=== PATIENT | female | born 1930 | race African-American/Black ===

== ENCOUNTER 2018-02-03 16:52 | Inpatient (IN) | payer MEDICARE, BC ==
[~2018-02-03] VITALS: Ht 170.2 cm; Wt 56.3 kg
[~2018-02-03 16:52] MED LIST: AGGR PO; ATOR10TA PO; DILT240C92 PO
[2018-02-03] MEDS ORDERED: SODIUM CHLORIDE 0.9% 1000ML BAG (SEPSIS BOLUS) IV ONE (18:30)
[2018-02-03 18:52] LABS: BASOPHILS % 0.3 % (0.0-2.0); EOSINOPHILS % 0.2 % (0.0-5.0); HEMATOCRIT. 29.6 % (36.0-48.0); HEMOGLOBIN. 10.3 g/dL (12.0-16.0); LYMPHOCYTES % 25.1 % (20.0-50.0); MEAN CORPUSCULAR HEMOGLOBIN 31.4 pg (28.0-32.0); MEAN CORPUSCULAR VOLUME 90.3 fL (81.0-99.0); MEAN PLATELET VOLUME 8.6 fl (7.4-10.4); MONOCYTES % 11.9 % (2.0-8.0); NEUTROPHILS % 62.5 % (40.0-76.0); PLATELET 248 x1000/uL (130-400); RED BLOOD CELL COUNT 3.28 mill/uL (4.2-5.4); RED CELL DISTRIBUTION WIDTH 14.6 % (11.6-14.6)
[2018-02-03 18:55] LABS: CHLORIDE 97 mEq/L (98-107)
[2018-02-03 18:57] LABS: INR 1.2; PROTHROMBIN TIME 12.3 sec (9.1-11.1)
[2018-02-03 19:08] LABS: CLARITY URINE CLOUDY (CLEAR); COLOR URINE YELLOW (YELLOW); KETONES URINE NEGATIVE (NEGATIVE); LEUKOCYTE ESTERASE URINE 1+ (NEGATIVE); NITRITE URINE NEGATIVE (NEGATIVE); OCCULT BLOOD URINE TRACE (NEGATIVE); PROTEIN URINE 2+ (NEGATIVE); SPECIFIC GRAVITY URINE 1.019 (1.005-1.030); UROBILINOGEN URINE 0.2 E.U./dL (0.2-1.0)
[2018-02-03] MEDS ORDERED: AZITHROMYCIN 500 MG in DEXT 5% WATER 250 ML IV NR (20:32)
[2018-02-03] MEDS ORDERED: ASPIRIN 81MG TABLET PO NR (20:45)
[2018-02-03] MEDS ORDERED: CEFTRIAXONE 1 G PREMIX 50 ML IV NR (20:45)
[2018-02-03 22:20] VITALS: BP 164/136
[2018-02-04] VITALS: BP 152/69
[2018-02-04] MEDS ORDERED: LEVOFLOXACIN 500MG PREMIX 100 ML IV SCH ×2 (00:15→02:00)
[2018-02-04] MEDS ORDERED: DEXT 5%/0.9% NACL 1,000 ML IV SCH (00:15)
[2018-02-04] MEDS ORDERED: DIATR MEGLU/DIATRIZOATE SOLN 30ML PO SCH (00:15)
[2018-02-04] MEDS ORDERED: CLONIDINE 0.1MG TABLET PO PRN (00:45)
[2018-02-04] MEDS ORDERED: VANCOMYCIN 1250MG in DEXTROSE 5% WATER 250ML IV SCH (02:00)
[2018-02-04 03:23] VITALS: BP 120/72
[2018-02-04] MEDS: ACETAMINOPHEN 500MG TABLET PO PRN ×2 (03:41→23:35)
[2018-02-04 06:47] LABS: BASOPHILS % 0.2 % (0.0-2.0); HEMATOCRIT. 28.2 % (36.0-48.0); HEMOGLOBIN. 9.9 g/dL (12.0-16.0); LYMPHOCYTES % 14.5 % (20.0-50.0); MEAN CORPUSCULAR HEMOGLOBIN 31.4 pg (28.0-32.0); MEAN CORPUSCULAR VOLUME 89.8 fL (81.0-99.0); MEAN PLATELET VOLUME 8.4 fl (7.4-10.4); NEUTROPHILS % 75.3 % (40.0-76.0); PLATELET 236 x1000/uL (130-400); RED BLOOD CELL COUNT 3.14 mill/uL (4.2-5.4); RED CELL DISTRIBUTION WIDTH 14.6 % (11.6-14.6)
[2018-02-04 06:51] LABS: CHLORIDE 97 mEq/L (98-107)
[2018-02-04 08:00] VITALS: BP 152/82
[2018-02-04] MEDS: POTASSIUM CHLORIDE 20MEQ TABLET SR PO SCH ×3 (08:18→17:23)
[2018-02-04] MEDS: DILTIAZEM HCL 240MG ER (24HR) PO SCH (08:18)
[2018-02-04] MEDS: ASPIRIN/DIPYRIDAMOLE 25MG/200MG CAPSULE SA PO SCH ×2 (08:18→21:17)
[2018-02-04] MEDS ORDERED: KCL 20MEQ/100ML PREMIX 250 ML IV ONE (09:00)
[2018-02-04] MEDS ORDERED: DIATR MEGLU/DIATRIZOATE SOLN 30ML PO NR ×2 (09:15→15:30)
[2018-02-04] MEDS ORDERED: POTASSIUM CHLORIDE INJ 20 MEQ in DEXT 5% WATER 250 ML IV NR (10:30)
[2018-02-04 12:00] VITALS: BP 147/60
[2018-02-04] MEDS: DEXT 5%/0.45% NACL KCL 40MEQ/L 1,000 ML IV SCH (15:23)
[2018-02-04 16:00] VITALS: BP 132/68
[2018-02-04] MEDS ORDERED: MEGE625O3 PO (17:16)
[2018-02-04] MEDS ORDERED: MONT10TA24 PO (17:16)
[2018-02-04] MEDS ORDERED: IBAN150T9 PO (17:16)
[2018-02-04] MEDS ORDERED: IOHEXOL-300 100 ML BOTTLE ONE (19:31)
[2018-02-04 19:57] VITALS: BP 140/80
[2018-02-04] MEDS: AZITHROMYCIN 500 MG in DEXT 5% WATER 250 ML IV SCH (19:59)
[2018-02-04] MEDS: VANCOMYCIN 1 G PREMIX 200 ML IV SCH (21:17)
[2018-02-04] MEDS: ATORVASTATIN CALCIUM 10MG TABLET PO SCH (21:17)
[2018-02-05] VITALS: BP 129/56
[2018-02-05] MEDS: DEXT 5%/0.45% NACL KCL 40MEQ/L 1,000 ML IV SCH ×2 (00:50→18:12)
[2018-02-05] MEDS: LEVOFLOXACIN 250MG PREMIX 50 ML IV SCH (02:10)
[2018-02-05 04:00] VITALS: BP 126/65
[2018-02-05 07:00] LABS: BASOPHILS % 0.2 % (0.0-2.0); EOSINOPHILS % 0.2 % (0.0-5.0); HEMATOCRIT. 28.7 % (36.0-48.0); HEMOGLOBIN. 10.1 g/dL (12.0-16.0); LYMPHOCYTES % 16.8 % (20.0-50.0); MEAN CORPUSCULAR HEMOGLOBIN 31.2 pg (28.0-32.0); MEAN CORPUSCULAR VOLUME 88.9 fL (81.0-99.0); MEAN PLATELET VOLUME 8.3 fl (7.4-10.4); MONOCYTES % 14.6 % (2.0-8.0); NEUTROPHILS % 68.2 % (40.0-76.0); PLATELET 225 x1000/uL (130-400); RED BLOOD CELL COUNT 3.23 mill/uL (4.2-5.4); RED CELL DISTRIBUTION WIDTH 14.6 % (11.6-14.6)
[2018-02-05 08:00] VITALS: BP 127/74
[2018-02-05] MEDS: DILTIAZEM HCL 240MG ER (24HR) PO SCH (09:12)
[2018-02-05] MEDS: POTASSIUM CHLORIDE 20MEQ TABLET SR PO SCH ×3 (09:12→18:06)
[2018-02-05] MEDS: ACETAMINOPHEN 500MG TABLET PO PRN ×2 (09:12→18:31)
[2018-02-05] MEDS: ASPIRIN/DIPYRIDAMOLE 25MG/200MG CAPSULE SA PO SCH ×2 (09:12→20:27)
[2018-02-05 12:00] VITALS: BP 143/68
[2018-02-05] MEDS ORDERED: MEGESTROL ACETATE 40MG TABLET PO SCH (12:30)
[2018-02-05] MEDS: MEGESTROL ACETATE 400 MG/10 ML UDC PO SCH (13:30)
[2018-02-05] MEDS: VANCOMYCIN 1 G PREMIX 200 ML IV SCH (15:13)
[2018-02-05 16:00] VITALS: BP 132/81
[2018-02-05 20:00] VITALS: BP 129/51
[2018-02-05] MEDS: ATORVASTATIN CALCIUM 10MG TABLET PO SCH (20:27)
[2018-02-05] MEDS: AZITHROMYCIN 500 MG in DEXT 5% WATER 250 ML IV SCH (20:28)
[2018-02-06] VITALS: BP 128/61
[2018-02-06] MEDS: LEVOFLOXACIN 250MG PREMIX 50 ML IV SCH (01:31)
[2018-02-06 04:00] VITALS: BP 146/65
[2018-02-06 06:33] LABS: BASOPHILS % 0.2 % (0.0-2.0); EOSINOPHILS % 0.2 % (0.0-5.0); HEMATOCRIT. 28.7 % (36.0-48.0); HEMOGLOBIN. 10.2 g/dL (12.0-16.0); LYMPHOCYTES % 16.6 % (20.0-50.0); MEAN CORPUSCULAR HEMOGLOBIN 31.7 pg (28.0-32.0); MEAN CORPUSCULAR VOLUME 89.2 fL (81.0-99.0); MEAN PLATELET VOLUME 8.4 fl (7.4-10.4); PLATELET 229 x1000/uL (130-400); RED BLOOD CELL COUNT 3.22 mill/uL (4.2-5.4); RED CELL DISTRIBUTION WIDTH 14.9 % (11.6-14.6)
[2018-02-06 07:59] LABS: CHLORIDE 102 mEq/L (98-107)
[2018-02-06 08:00] VITALS: BP 137/62
[2018-02-06] MEDS: DILTIAZEM HCL 240MG ER (24HR) PO SCH (08:54)
[2018-02-06] MEDS: VANCOMYCIN 1 G PREMIX 200 ML IV SCH (08:54)
[2018-02-06] MEDS: MEGESTROL ACETATE 400 MG/10 ML UDC PO SCH (08:55)
[2018-02-06] MEDS: ASPIRIN/DIPYRIDAMOLE 25MG/200MG CAPSULE SA PO SCH ×2 (08:55→20:40)
[2018-02-06] MEDS: DEXT 5%/0.45% NACL KCL 40MEQ/L 1,000 ML IV SCH (10:58)
[2018-02-06 11:56] VITALS: BP 132/64
[2018-02-06 16:00] VITALS: BP 126/54
[2018-02-06] MEDS: ACETAMINOPHEN 500MG TABLET PO PRN (18:27)
[2018-02-06 20:00] VITALS: BP 130/61
[2018-02-06] MEDS: ATORVASTATIN CALCIUM 10MG TABLET PO SCH (20:39)
[2018-02-06] MEDS: AZITHROMYCIN 500 MG in DEXT 5% WATER 250 ML IV SCH (20:40)
[2018-02-07] VITALS: BP 129/59
[2018-02-07] MEDS: LEVOFLOXACIN 250MG PREMIX 50 ML IV SCH (01:11)
[2018-02-07 04:00] VITALS: BP 157/70
[2018-02-07] MEDS ORDERED: VANCOMYCIN 500 MG PREMIX 100 ML IV SCH (06:00)
[2018-02-07 07:38] LABS: BASOPHILS % 0.2 % (0.0-2.0); EOSINOPHILS % 0.5 % (0.0-5.0); HEMATOCRIT. 30.4 % (36.0-48.0); HEMOGLOBIN. 10.6 g/dL (12.0-16.0); LYMPHOCYTES % 14.2 % (20.0-50.0); MEAN CORPUSCULAR HEMOGLOBIN 31.4 pg (28.0-32.0); MEAN CORPUSCULAR VOLUME 89.7 fL (81.0-99.0); MEAN PLATELET VOLUME 8.5 fl (7.4-10.4); MONOCYTES % 8.7 % (2.0-8.0); NEUTROPHILS % 76.4 % (40.0-76.0); PLATELET 228 x1000/uL (130-400); RED BLOOD CELL COUNT 3.39 mill/uL (4.2-5.4)
[2018-02-07 07:41] LABS: CHLORIDE 101 mEq/L (98-107)
[2018-02-07 08:00] VITALS: BP 139/63
[2018-02-07] MEDS: ASPIRIN/DIPYRIDAMOLE 25MG/200MG CAPSULE SA PO SCH ×2 (09:13→20:30)
[2018-02-07] MEDS: DILTIAZEM HCL 240MG ER (24HR) PO SCH (09:13)
[2018-02-07] MEDS: MEGESTROL ACETATE 400 MG/10 ML UDC PO SCH (09:13)
[2018-02-07 10:19] LABS: BG BASE EXCESS -2.1 mmol/L (-2.0-2.0); BG CARBOXYHEMOGLOBIN 0.3 % (0.5-1.5); BG FRACTION INSPIRED OXYGEN 21; BG METHEMOGLOBIN 0.1 % (0.0-1.5); BG OXYHEMOGLOBIN 95.6 % (94.0-97.0); BG PCO2 26.7 mmHg (35.0-45.0); BG PH 7.493 (7.350-7.450); BG PO2 74.8 mmHg (75.0-100.0); BG SAMPLE SITE RIGHT BRACHIAL; BG TOTAL HEMOGLOBIN 11.3 g/dL (12.0-18.0); BG VENT MODE ROOM AIR
[2018-02-07 12:00] VITALS: BP 140/95
[2018-02-07] MEDS ORDERED: MAGNESIUM SULFATE 2 GM in DEXTROSE 5% WATER 50 ML IV NR (14:00)
[2018-02-07] MEDS: ACETAMINOPHEN 500MG TABLET PO PRN ×2 (14:22→23:44)
[2018-02-07 16:00] VITALS: BP 102/82
[2018-02-07 20:00] VITALS: BP 130/61
[2018-02-07] MEDS: AZITHROMYCIN 500 MG in DEXT 5% WATER 250 ML IV SCH (20:30)
[2018-02-07] MEDS: ATORVASTATIN CALCIUM 10MG TABLET PO SCH (20:57)
[2018-02-07] MEDS ORDERED: IOHEXOL-350 100 ML BOTTLE ONE (21:50)
[2018-02-08] VITALS: BP 143/65
[2018-02-08] MEDS: LEVOFLOXACIN 250MG PREMIX 50 ML IV SCH (02:55)
[2018-02-08 04:00] VITALS: BP 127/64
[2018-02-08 06:33] LABS: BASOPHILS % 0.4 % (0.0-2.0); EOSINOPHILS % 0.8 % (0.0-5.0); HEMATOCRIT. 29.4 % (36.0-48.0); HEMOGLOBIN. 10.4 g/dL (12.0-16.0); LYMPHOCYTES % 14.8 % (20.0-50.0); MEAN CORPUSCULAR HEMOGLOBIN 31.7 pg (28.0-32.0); MEAN CORPUSCULAR VOLUME 89.8 fL (81.0-99.0); MEAN PLATELET VOLUME 8.1 fl (7.4-10.4); MONOCYTES % 10.1 % (2.0-8.0); NEUTROPHILS % 73.9 % (40.0-76.0); PLATELET 240 x1000/uL (130-400); RED BLOOD CELL COUNT 3.27 mill/uL (4.2-5.4); RED CELL DISTRIBUTION WIDTH 14.9 % (11.6-14.6)
[2018-02-08 08:00] VITALS: BP 120/45
[2018-02-08] MEDS: DILTIAZEM HCL 240MG ER (24HR) PO SCH (09:16)
[2018-02-08] MEDS: ASPIRIN/DIPYRIDAMOLE 25MG/200MG CAPSULE SA PO SCH (09:16)
[2018-02-08] MEDS: MEGESTROL ACETATE 400 MG/10 ML UDC PO SCH (09:16)
[2018-02-08] MEDS: ACETAMINOPHEN 500MG TABLET PO PRN (09:20)
[2018-02-08 14:18] VITALS: BP 115/54
[2018-02-08] MEDS ORDERED: AZITHROMYCIN 500 MG TABLET PO SCH (21:00)
[2018-02-09] MEDS ORDERED: LEVOFLOXACIN 250MG TABLET PO SCH (09:00)
[2018-02-09 13:06] LABS: ANGIOTENSION CONVERTING ENZYME 43 U/L (14-82)
== END 2018-02-08 16:43 | DRG 871 ==
LOC: ER 19:05 → 8WST 20:34 → EDBEDREQ 20:37 → ENRESERV 21:44
PROVIDERS: ADMIT Internal Medicine; ATTEND Internal Medicine
DX: A41.9 Sepsis, unspecified organism (principal); J18.9 Pneumonia, unspecified organism; N39.0 Urinary tract infection, site not specified; E87.1 Hypo-osmolality and hyponatremia; J44.0 Chronic obstructive pulmonary disease with (acute) lower respiratory infection; Z68.1 Body mass index [BMI] 19.9 or less, adult; I10 Essential (primary) hypertension; Z96.659 Presence of unspecified artificial knee joint; Z96.649 Presence of unspecified artificial hip joint; Z77.090 Contact with and (suspected) exposure to asbestos; D64.9 Anemia, unspecified; E87.6 Hypokalemia; E78.5 Hyperlipidemia, unspecified; R51 Headache; M19.90 Unspecified osteoarthritis, unspecified site; R91.8 Other nonspecific abnormal finding of lung field; R63.0 Anorexia; R62.7 Adult failure to thrive; R63.4 Abnormal weight loss; F32.9 Major depressive disorder, single episode, unspecified; I48.91 Unspecified atrial fibrillation; I27.81 Cor pulmonale (chronic); Z86.73 Personal history of transient ischemic attack (TIA), and cerebral infarction without residual deficits; Z90.710 Acquired absence of both cervix and uterus; Z88.2 Allergy status to sulfonamides; Z79.899 Other long term (current) drug therapy; Z87.01 Personal history of pneumonia (recurrent)
CPT/HCPCS: 36415; 36600; 70551; 71045; 71046; 71260; 71275; 74177; 80048; 80053; 80202; 81003; 82164; 82375; 82805; 83605; 83735; 83880; 84484; 85025; 85610; 85651; 86635; 87040; 87077; 87086; 87186; 93005; 93306; 93970; 96365; 97110; 97162; 97530; 99291; J0456; J0696; J1956; J3370; J3475; J3480; J7030; J7040; J7042; J7050; J7060; Q9963; Q9967

== ENCOUNTER 2018-02-08 16:50 | Inpatient (IN) | payer MEDICARE, BC ==
[~2018-02-08] VITALS: Ht 170.2 cm; Wt 64.9 kg
[~2018-02-08 16:50] MED LIST changes: +IBAN150T9 PO; +MEGE625O3 PO; +MONT10TA24 PO
[2018-02-08 17:00] VITALS: BP 141/57
[2018-02-08] MEDS ORDERED: CLONIDINE 0.1MG TABLET PO PRN (19:30)
[2018-02-08 20:00] VITALS: BP 148/64
[2018-02-08] MEDS: ATORVASTATIN CALCIUM 10MG TABLET PO SCH (21:50)
[2018-02-08] MEDS: AZITHROMYCIN 500 MG TABLET PO SCH (21:50)
[2018-02-08] MEDS: ASPIRIN/DIPYRIDAMOLE 25MG/200MG CAPSULE SA PO SCH (21:50)
[2018-02-09 08:23] VITALS: BP 137/64
[2018-02-09] MEDS: MEGESTROL ACETATE 400 MG/10 ML UDC PO SCH (09:15)
[2018-02-09] MEDS: ASPIRIN/DIPYRIDAMOLE 25MG/200MG CAPSULE SA PO SCH ×2 (09:15→21:51)
[2018-02-09] MEDS: LEVOFLOXACIN 250MG TABLET PO SCH (11:31)
[2018-02-09] MEDS: AMLODIPINE 5MG TABLET PO SCH ×2 (11:31→21:50)
[2018-02-09] MEDS: GUAIFENESIN 200MG/10ML SUGAR FREE UDC PO PRN ×2 (16:41→22:17)
[2018-02-09 20:00] VITALS: BP 143/60
[2018-02-09] MEDS: AZITHROMYCIN 500 MG TABLET PO SCH (21:51)
[2018-02-09] MEDS: ATORVASTATIN CALCIUM 10MG TABLET PO SCH (21:51)
[2018-02-10] MEDS: GUAIFENESIN 200MG/10ML SUGAR FREE UDC PO PRN ×2 (03:04→23:56)
[2018-02-10 08:14] VITALS: BP 116/65
[2018-02-10] MEDS: MEGESTROL ACETATE 400 MG/10 ML UDC PO SCH (08:18)
[2018-02-10] MEDS: ASPIRIN/DIPYRIDAMOLE 25MG/200MG CAPSULE SA PO SCH ×2 (08:18→21:25)
[2018-02-10] MEDS: AMLODIPINE 5MG TABLET PO SCH (08:59)
[2018-02-10] MEDS: LEVOFLOXACIN 250MG TABLET PO SCH (11:15)
[2018-02-10] MEDS ORDERED: DILTIAZEM HCL 30MG TABLET PO SCH (11:30)
[2018-02-10] MEDS: SODIUM CHLORIDE 0.9% 1,000 ML IV SCH (17:11)
[2018-02-10 20:00] VITALS: BP 117/49
[2018-02-10] MEDS: ATORVASTATIN CALCIUM 10MG TABLET PO SCH (21:25)
[2018-02-10] MEDS: AZITHROMYCIN 500 MG TABLET PO SCH (21:25)
[2018-02-11] MEDS ORDERED: NITROGLYCERIN 0.4MG TABLET SL SL NR
[2018-02-11 06:41] LABS: BASOPHILS % 0.3 % (0.0-2.0); EOSINOPHILS % 0.4 % (0.0-5.0); HEMATOCRIT. 27.8 % (36.0-48.0); HEMOGLOBIN. 9.8 g/dL (12.0-16.0); LYMPHOCYTES % 17.5 % (20.0-50.0); MEAN CORPUSCULAR HEMOGLOBIN 31.6 pg (28.0-32.0); MEAN CORPUSCULAR VOLUME 89.5 fL (81.0-99.0); MEAN PLATELET VOLUME 8.1 fl (7.4-10.4); MONOCYTES % 10.6 % (2.0-8.0); NEUTROPHILS % 71.2 % (40.0-76.0); PLATELET 250 x1000/uL (130-400); RED CELL DISTRIBUTION WIDTH 14.6 % (11.6-14.6)
[2018-02-11] MEDS: SODIUM CHLORIDE 0.9% 1,000 ML IV SCH ×2 (06:46→17:37)
[2018-02-11 08:00] VITALS: BP 131/61
[2018-02-11] MEDS: ASPIRIN/DIPYRIDAMOLE 25MG/200MG CAPSULE SA PO SCH ×2 (09:39→21:26)
[2018-02-11] MEDS: MEGESTROL ACETATE 400 MG/10 ML UDC PO SCH (09:39)
[2018-02-11 09:40] VITALS: BP 127/58
[2018-02-11 09:44] VITALS: BP 103/49
[2018-02-11 09:46] VITALS: BP 81/51
[2018-02-11 10:00] VITALS: BP 120/62
[2018-02-11] MEDS: LEVOFLOXACIN 250MG TABLET PO SCH (11:53)
[2018-02-11] MEDS: FLUDROCORTISONE ACETATE 0.1MG TABLET PO SCH (11:53)
[2018-02-11 20:00] VITALS: BP 107/51
[2018-02-11] MEDS: ATORVASTATIN CALCIUM 10MG TABLET PO SCH (21:26)
[2018-02-11] MEDS: AZITHROMYCIN 500 MG TABLET PO SCH (21:26)
[2018-02-12] MEDS: SODIUM CHLORIDE 0.9% 1,000 ML IV SCH ×2 (06:15→20:42)
[2018-02-12 07:07] LABS: BASOPHILS % 0.3 % (0.0-2.0); EOSINOPHILS % 0.5 % (0.0-5.0); HEMOGLOBIN. 9.2 g/dL (12.0-16.0); LYMPHOCYTES % 19.2 % (20.0-50.0); MEAN CORPUSCULAR HEMOGLOBIN 31.8 pg (28.0-32.0); MONOCYTES % 13.4 % (2.0-8.0); NEUTROPHILS % 66.6 % (40.0-76.0); PLATELET 234 x1000/uL (130-400); RED BLOOD CELL COUNT 2.89 mill/uL (4.2-5.4); RED CELL DISTRIBUTION WIDTH 14.5 % (11.6-14.6)
[2018-02-12 08:13] VITALS: BP 126/59
[2018-02-12] MEDS: MEGESTROL ACETATE 400 MG/10 ML UDC PO SCH (09:16)
[2018-02-12] MEDS: GUAIFENESIN 200MG/10ML SUGAR FREE UDC PO PRN (09:16)
[2018-02-12] MEDS: ASPIRIN/DIPYRIDAMOLE 25MG/200MG CAPSULE SA PO SCH ×2 (09:17→20:42)
[2018-02-12] MEDS: FLUDROCORTISONE ACETATE 0.1MG TABLET PO SCH (09:17)
[2018-02-12] MEDS: BENZONATATE 100MG CAPSULE PO SCH ×2 (11:57→18:19)
[2018-02-12] MEDS: LEVOFLOXACIN 250MG TABLET PO SCH (11:57)
[2018-02-12] MEDS ORDERED: MAGNESIUM 2 G PREMIX 50 ML IV NR (12:00)
[2018-02-12] MEDS: ACETAMINOPHEN 500MG TABLET PO PRN ×2 (16:35→19:42)
[2018-02-12 20:00] VITALS: BP 126/60
[2018-02-12] MEDS: AZITHROMYCIN 500 MG TABLET PO SCH (20:42)
[2018-02-12] MEDS: ATORVASTATIN CALCIUM 10MG TABLET PO SCH (20:42)
[2018-02-12] MEDS ORDERED: OMEPRAZOLE 20MG CAPSULE EXTENDED RELEASE PO SCH (23:15)
[2018-02-12] MEDS ORDERED: MAGNESIUM/ALUMINUM HYDROXIDE/SIMETHICONE 30ML UDC PO SCH (23:15)
[2018-02-13] MEDS: BENZONATATE 100MG CAPSULE PO SCH ×3 (04:10→18:05)
[2018-02-13] MEDS: OMEPRAZOLE 20MG CAPSULE EXTENDED RELEASE PO SCH (06:45)
[2018-02-13 06:56] LABS: BASOPHILS % 0.3 % (0.0-2.0); EOSINOPHILS % 0.7 % (0.0-5.0); HEMATOCRIT. 28.4 % (36.0-48.0); HEMOGLOBIN. 9.9 g/dL (12.0-16.0); LYMPHOCYTES % 19.6 % (20.0-50.0); MEAN CORPUSCULAR HEMOGLOBIN 31.2 pg (28.0-32.0); MEAN PLATELET VOLUME 8.1 fl (7.4-10.4); MONOCYTES % 14.1 % (2.0-8.0); NEUTROPHILS % 65.3 % (40.0-76.0); PLATELET 240 x1000/uL (130-400); RED BLOOD CELL COUNT 3.16 mill/uL (4.2-5.4); RED CELL DISTRIBUTION WIDTH 14.5 % (11.6-14.6)
[2018-02-13 07:32] LABS: CHLORIDE 106 mEq/L (98-107)
[2018-02-13 08:06] VITALS: BP 109/67
[2018-02-13] MEDS: MEGESTROL ACETATE 400 MG/10 ML UDC PO SCH (08:10)
[2018-02-13] MEDS: FLUDROCORTISONE ACETATE 0.1MG TABLET PO SCH (08:10)
[2018-02-13] MEDS: ASPIRIN/DIPYRIDAMOLE 25MG/200MG CAPSULE SA PO SCH ×2 (08:10→21:06)
[2018-02-13] MEDS: SODIUM CHLORIDE 0.9% 1,000 ML IV SCH (08:13)
[2018-02-13] MEDS: LEVOFLOXACIN 250MG TABLET PO SCH (10:39)
[2018-02-13] MEDS ORDERED: MAGNESIUM/ALUMINUM HYDROXIDE/SIMETHICONE 30ML UDC PO PRN (12:00)
[2018-02-13] MEDS ORDERED: CYCLOBENZAPRINE 10MG TABLET PO NR (12:00)
[2018-02-13] MEDS: DOCUSATE SODIUM 250MG CAPSULE PO SCH (12:35)
[2018-02-13 20:00] VITALS: BP 116/75
[2018-02-13] MEDS: AZITHROMYCIN 500 MG TABLET PO SCH (21:01)
[2018-02-13] MEDS: ATORVASTATIN CALCIUM 10MG TABLET PO SCH (21:01)
[2018-02-13] MEDS: ACETAMINOPHEN 500MG TABLET PO PRN (21:06)
[2018-02-14] MEDS: SODIUM CHLORIDE 0.9% 1,000 ML IV SCH ×2 (01:31→10:35)
[2018-02-14] MEDS: BENZONATATE 100MG CAPSULE PO SCH ×3 (03:44→18:09)
[2018-02-14] MEDS: ACETAMINOPHEN 500MG TABLET PO PRN ×2 (03:44→23:50)
[2018-02-14] MEDS: OMEPRAZOLE 20MG CAPSULE EXTENDED RELEASE PO SCH (06:53)
[2018-02-14 07:56] VITALS: BP 142/58
[2018-02-14] MEDS: MEGESTROL ACETATE 400 MG/10 ML UDC PO SCH (08:42)
[2018-02-14] MEDS: FLUDROCORTISONE ACETATE 0.1MG TABLET PO SCH (08:42)
[2018-02-14] MEDS: ASPIRIN/DIPYRIDAMOLE 25MG/200MG CAPSULE SA PO SCH ×2 (08:42→22:02)
[2018-02-14] MEDS: DOCUSATE SODIUM 250MG CAPSULE PO SCH (08:42)
[2018-02-14] MEDS: LEVOFLOXACIN 250MG TABLET PO SCH (10:28)
[2018-02-14 20:00] VITALS: BP 154/71
[2018-02-14] MEDS: ATORVASTATIN CALCIUM 10MG TABLET PO SCH (22:02)
[2018-02-14] MEDS: AZITHROMYCIN 500 MG TABLET PO SCH (22:02)
[2018-02-15] MEDS: SODIUM CHLORIDE 0.9% 1,000 ML IV SCH ×2 (02:25→13:21)
[2018-02-15] MEDS: BENZONATATE 100MG CAPSULE PO SCH ×3 (03:40→18:00)
[2018-02-15] MEDS: OMEPRAZOLE 20MG CAPSULE EXTENDED RELEASE PO SCH (06:19)
[2018-02-15 08:00] VITALS: BP 91/46
[2018-02-15] MEDS: ASPIRIN/DIPYRIDAMOLE 25MG/200MG CAPSULE SA PO SCH ×2 (08:40→20:20)
[2018-02-15] MEDS: DOCUSATE SODIUM 250MG CAPSULE PO SCH (08:40)
[2018-02-15] MEDS: FLUDROCORTISONE ACETATE 0.1MG TABLET PO SCH (08:40)
[2018-02-15] MEDS: MEGESTROL ACETATE 400 MG/10 ML UDC PO SCH (08:40)
[2018-02-15] MEDS: LEVOFLOXACIN 250MG TABLET PO SCH (10:56)
[2018-02-15] MEDS: MAGNESIUM/ALUMINUM HYDROXIDE/SIMETHICONE 30ML UDC PO SCH ×2 (17:19→22:49)
[2018-02-15 20:00] VITALS: BP 149/62
[2018-02-15] MEDS: ATORVASTATIN CALCIUM 10MG TABLET PO SCH (20:20)
[2018-02-15] MEDS: AZITHROMYCIN 500 MG TABLET PO SCH (20:20)
[2018-02-16] MEDS: BENZONATATE 100MG CAPSULE PO SCH ×3 (02:32→18:24)
[2018-02-16] MEDS: MAGNESIUM/ALUMINUM HYDROXIDE/SIMETHICONE 30ML UDC PO SCH ×4 (04:56→23:15)
[2018-02-16 06:46] LABS: BASOPHILS % 0.3 % (0.0-2.0); EOSINOPHILS % 0.8 % (0.0-5.0); HEMATOCRIT. 25.6 % (36.0-48.0); HEMOGLOBIN. 9.1 g/dL (12.0-16.0); LYMPHOCYTES % 19.8 % (20.0-50.0); MEAN CORPUSCULAR HEMOGLOBIN 31.6 pg (28.0-32.0); MEAN CORPUSCULAR VOLUME 89.4 fL (81.0-99.0); MEAN PLATELET VOLUME 7.6 fl (7.4-10.4); MONOCYTES % 9.5 % (2.0-8.0); NEUTROPHILS % 69.6 % (40.0-76.0); PLATELET 287 x1000/uL (130-400); RED BLOOD CELL COUNT 2.86 mill/uL (4.2-5.4); RED CELL DISTRIBUTION WIDTH 14.6 % (11.6-14.6)
[2018-02-16 07:11] LABS: CHLORIDE 105 mEq/L (98-107)
[2018-02-16 08:00] VITALS: BP 163/68
[2018-02-16] MEDS: ASPIRIN/DIPYRIDAMOLE 25MG/200MG CAPSULE SA PO SCH ×2 (08:37→21:29)
[2018-02-16] MEDS: MEGESTROL ACETATE 400 MG/10 ML UDC PO SCH (08:37)
[2018-02-16] MEDS: DOCUSATE SODIUM 250MG CAPSULE PO SCH (08:38)
[2018-02-16] MEDS: FAMOTIDINE 20MG TABLET PO SCH (08:38)
[2018-02-16] MEDS: FLUDROCORTISONE ACETATE 0.1MG TABLET PO SCH (08:38)
[2018-02-16] MEDS: LEVOFLOXACIN 250MG TABLET PO SCH (10:44)
[2018-02-16] MEDS: POTASSIUM CHLORIDE 20MEQ TABLET SR PO SCH ×3 (11:44→16:21)
[2018-02-16 18:30] VITALS: BP 138/55
[2018-02-16 18:31] VITALS: BP_SYST 104; BP_SYST 119; BP_DIAS 51; BP_DIAS 57
[2018-02-16 20:54] VITALS: BP 124/57
[2018-02-16] MEDS: ATORVASTATIN CALCIUM 10MG TABLET PO SCH (21:29)
[2018-02-17] MEDS: BENZONATATE 100MG CAPSULE PO SCH ×3 (03:38→18:15)
[2018-02-17] MEDS: MAGNESIUM/ALUMINUM HYDROXIDE/SIMETHICONE 30ML UDC PO SCH ×4 (05:15→23:34)
[2018-02-17 07:06] LABS: CHLORIDE 105 mEq/L (98-107)
[2018-02-17 07:56] VITALS: BP 159/65
[2018-02-17] MEDS: DOCUSATE SODIUM 250MG CAPSULE PO SCH (08:27)
[2018-02-17] MEDS: FAMOTIDINE 20MG TABLET PO SCH (08:27)
[2018-02-17] MEDS: FLUDROCORTISONE ACETATE 0.1MG TABLET PO SCH (08:27)
[2018-02-17] MEDS: ASPIRIN/DIPYRIDAMOLE 25MG/200MG CAPSULE SA PO SCH ×2 (08:27→21:05)
[2018-02-17] MEDS: MEGESTROL ACETATE 400 MG/10 ML UDC PO SCH (08:27)
[2018-02-17] MEDS: CYPROHEPTADINE HCL 4 MG TABLET PO SCH ×2 (11:07→18:15)
[2018-02-17 20:00] VITALS: BP 146/57
[2018-02-17] MEDS: ATORVASTATIN CALCIUM 10MG TABLET PO SCH (21:05)
[2018-02-17] MEDS: ACETAMINOPHEN 500MG TABLET PO PRN (23:53)
[2018-02-18 00:10] VITALS: BP 157/70
[2018-02-18 00:11] VITALS: BP 145/75
[2018-02-18 00:12] VITALS: BP 151/79
[2018-02-18] MEDS: BENZONATATE 100MG CAPSULE PO SCH ×3 (03:46→18:00)
[2018-02-18] MEDS: MAGNESIUM/ALUMINUM HYDROXIDE/SIMETHICONE 30ML UDC PO SCH ×4 (05:00→23:36)
[2018-02-18 08:15] LABS: BASOPHILS % 0.5 % (0.0-2.0); HEMOGLOBIN. 9.1 g/dL (12.0-16.0); LYMPHOCYTES % 25.3 % (20.0-50.0); MEAN CORPUSCULAR HEMOGLOBIN 31.5 pg (28.0-32.0); MEAN CORPUSCULAR VOLUME 90.4 fL (81.0-99.0); MEAN PLATELET VOLUME 7.5 fl (7.4-10.4); MONOCYTES % 10.4 % (2.0-8.0); NEUTROPHILS % 62.8 % (40.0-76.0); PLATELET 321 x1000/uL (130-400); RED BLOOD CELL COUNT 2.88 mill/uL (4.2-5.4); RED CELL DISTRIBUTION WIDTH 14.7 % (11.6-14.6)
[2018-02-18 08:24] VITALS: BP 163/71
[2018-02-18 08:56] LABS: CHLORIDE 106 mEq/L (98-107)
[2018-02-18 09:06] LABS: PHOSPHORUS 1.9 mg/dL (2.5-4.9)
[2018-02-18] MEDS: ASPIRIN/DIPYRIDAMOLE 25MG/200MG CAPSULE SA PO SCH ×2 (09:57→20:58)
[2018-02-18] MEDS: FAMOTIDINE 20MG TABLET PO SCH (09:57)
[2018-02-18] MEDS: CYPROHEPTADINE HCL 4 MG TABLET PO SCH ×2 (09:57→17:57)
[2018-02-18] MEDS: FLUDROCORTISONE ACETATE 0.1MG TABLET PO SCH (09:57)
[2018-02-18] MEDS: MEGESTROL ACETATE 400 MG/10 ML UDC PO SCH (09:57)
[2018-02-18] MEDS: DOCUSATE SODIUM 250MG CAPSULE PO SCH (09:57)
[2018-02-18] MEDS: POTASSIUM-SODIUM PHOSPHATE POWDER PACKET PO SCH ×2 (10:55→17:56)
[2018-02-18 20:00] VITALS: BP 125/52
[2018-02-18] MEDS: ATORVASTATIN CALCIUM 10MG TABLET PO SCH (20:58)
[2018-02-18] MEDS: AMLODIPINE 2.5MG TABLET PO SCH (20:59)
[2018-02-19] MEDS: BENZONATATE 100MG CAPSULE PO SCH ×2 (03:21→10:46)
[2018-02-19 03:40] VITALS: BP 134/56
[2018-02-19 03:41] VITALS: BP 147/79
[2018-02-19 03:42] VITALS: BP 113/67
[2018-02-19] MEDS: MAGNESIUM/ALUMINUM HYDROXIDE/SIMETHICONE 30ML UDC PO SCH ×2 (05:00→10:47)
[2018-02-19 08:00] VITALS: BP 158/69
[2018-02-19] MEDS: ASPIRIN/DIPYRIDAMOLE 25MG/200MG CAPSULE SA PO SCH (09:19)
[2018-02-19] MEDS: AMLODIPINE 2.5MG TABLET PO SCH (09:19)
[2018-02-19] MEDS: DOCUSATE SODIUM 250MG CAPSULE PO SCH (09:19)
[2018-02-19] MEDS: POTASSIUM-SODIUM PHOSPHATE POWDER PACKET PO SCH (09:19)
[2018-02-19] MEDS: MEGESTROL ACETATE 400 MG/10 ML UDC PO SCH (09:19)
[2018-02-19] MEDS: FLUDROCORTISONE ACETATE 0.1MG TABLET PO SCH (09:19)
[2018-02-19] MEDS: CYPROHEPTADINE HCL 4 MG TABLET PO SCH (09:19)
[2018-02-19] MEDS: FAMOTIDINE 20MG TABLET PO SCH (09:19)
[2018-02-19 10:20] LABS: PHOSPHORUS 1.6 mg/dL (2.5-4.9)
[2018-02-19 10:25] LABS: BASOPHILS % 0.2 % (0.0-2.0); EOSINOPHILS % 1.2 % (0.0-5.0); HEMATOCRIT. 27.7 % (36.0-48.0); HEMOGLOBIN. 9.5 g/dL (12.0-16.0); LYMPHOCYTES % 20.1 % (20.0-50.0); MEAN CORPUSCULAR HEMOGLOBIN 31.4 pg (28.0-32.0); MEAN CORPUSCULAR VOLUME 91.4 fL (81.0-99.0); MEAN PLATELET VOLUME 7.2 fl (7.4-10.4); NEUTROPHILS % 68.5 % (40.0-76.0); PLATELET 328 x1000/uL (130-400); RED BLOOD CELL COUNT 3.03 mill/uL (4.2-5.4); RED CELL DISTRIBUTION WIDTH 15.1 % (11.6-14.6)
[2018-02-19 14:48] VITALS: BP 158/69
== END 2018-02-19 15:45 | disposition home or self-care (01) | DRG 947 ==
PROVIDERS: ADMIT Psychiatry & Neurology Neurology; ATTEND Internal Medicine
DX: R53.81 Other malaise (principal); J18.9 Pneumonia, unspecified organism; E87.1 Hypo-osmolality and hyponatremia; N39.0 Urinary tract infection, site not specified; J44.0 Chronic obstructive pulmonary disease with (acute) lower respiratory infection; I27.81 Cor pulmonale (chronic); R62.7 Adult failure to thrive; M54.30 Sciatica, unspecified side; I10 Essential (primary) hypertension; D64.9 Anemia, unspecified; M54.32 Sciatica, left side; M13.0 Polyarthritis, unspecified; H35.30 Unspecified macular degeneration; M81.0 Age-related osteoporosis without current pathological fracture; F32.9 Major depressive disorder, single episode, unspecified; E87.6 Hypokalemia; Z96.642 Presence of left artificial hip joint; Z96.651 Presence of right artificial knee joint; F41.9 Anxiety disorder, unspecified; Z90.710 Acquired absence of both cervix and uterus; Z88.2 Allergy status to sulfonamides; Z88.1 Allergy status to other antibiotic agents
CPT/HCPCS: 36415; 71045; 71046; 80048; 83735; 84100; 84484; 85025; 85651; 92523; 92610; 93005; 97110; 97116; 97162; 97166; 97530; 97535; A6261; C1893; G0515; J3475; J7030

== ENCOUNTER 2018-04-19 12:13 | Inpatient (IN) | payer MEDICARE, BC ==
[2018-04-19] VITALS (20 sets, daily range): BP systolic 98–138; BP diastolic 28–63
[~2018-04-19] VITALS: Ht 152.4 cm; Wt 57.7 kg
[~2018-04-19 12:13] MED LIST changes: -AGGR PO; +ASPI1CPM6 PO; -ATOR10TA PO; -DILT240C92 PO; +DILT240T12 PO; +MEGE40TA27 PO; -MEGE625O3 PO; -MONT10TA24 PO
[2018-04-19 13:41] LABS: CLARITY URINE CLEAR (CLEAR); COLOR URINE YELLOW (YELLOW); KETONES URINE TRACE (NEGATIVE); LEUKOCYTE ESTERASE URINE TRACE (NEGATIVE); NITRITE URINE NEGATIVE (NEGATIVE); OCCULT BLOOD URINE TRACE (NEGATIVE); PH URINE 6.5 (4.5-8.0); PROTEIN URINE 1+ (NEGATIVE); SPECIFIC GRAVITY URINE 1.015 (1.005-1.030); UROBILINOGEN URINE 0.2 E.U./dL (0.2-1.0)
[2018-04-19 13:45] LABS: INR 1.2; PARTIAL THROMBOPLASTIN TIME 31.2 sec (23.4-31.0); PROTHROMBIN TIME 11.9 sec (9.1-11.1)
[2018-04-19] MEDS ORDERED: BUPIVACAINE HCL/EPINEPHRINE 0.5%/0.0005 30ML ONE (15:18)
[2018-04-19] MEDS ORDERED: SKIN ADHESIVE 0.7 GM EA TOP ONE (15:18)
[2018-04-19] MEDS ORDERED: BACITRACIN 50,000 UNITS/VIAL ONE (15:19)
[2018-04-19] MEDS ORDERED: LACTATED RINGERS 1,000 ML IV SCH (15:22)
[2018-04-19] MEDS ORDERED: MIDAZOLAM HCL 2 MG/2 ML VIAL ONE (16:23)
[2018-04-19] MEDS ORDERED: FENTANYL CITRATE/PF 50MCG/ML 2ML VIAL ONE (16:23)
[2018-04-19] MEDS ORDERED: ROCURONIUM BROMIDE 10MG/ML VIAL 5ML IV ONE (16:23)
[2018-04-19] MEDS ORDERED: EPHEDRINE SULFATE 50MG/ML VIAL ONE (16:26)
[2018-04-19] MEDS ORDERED: IPRA42SP BOTHNSTRLS (16:57)
[2018-04-19] MEDS ORDERED: ATOR10TA69 PO (16:57)
[2018-04-19] MEDS ORDERED: BUPIVACAINE/EPINEPH/PF 0.25%/0.0005 10ML ONE (17:23)
[2018-04-19] MEDS ORDERED: SODIUM CHLORIDE 0.9% 500 ML IV PRN (18:53)
[2018-04-19] MEDS ORDERED: ACETAMINOPHEN 325MG TABLET PO PRN (19:00)
[2018-04-19] MEDS ORDERED: OXYCODONE HCL/ACETAMINOPHEN 5/325MG TABLET PO PRN (19:00)
[2018-04-19] MEDS: DEXT 5%/0.45% NACL 1000ML 1,000 ML IV SCH (20:54)
[2018-04-19] MEDS: CEFAZOLIN 1000MG PREMIX 50 ML IV SCH (22:23)
[2018-04-19] MEDS: MAGNESIUM HYDROXIDE 400MG/5ML 30ML UDC PO SCH (22:29)
[2018-04-20] VITALS (70 sets, daily range): BP systolic 71–167; BP diastolic 38–94
[2018-04-20 00:50] LABS: CHLORIDE 107 mEq/L (98-107)
[2018-04-20] MEDS: IPRATROPIUM/ALBUTEROL 0.5-3(2.5)MG/3ML NEB HHN SCH ×7 (01:24→23:50)
[2018-04-20 01:38] LABS: BG BASE EXCESS -0.5 mmol/L (-2.0-2.0); BG CARBOXYHEMOGLOBIN 0.2 % (0.5-1.5); BG DEOXYHEMOGLOBIN 0.4 % (0.0-5.0); BG FRACTION INSPIRED OXYGEN 100; BG HCO3 ACT 23.2 mmol/L (22.0-26.0); BG METHEMOGLOBIN 0.2 % (0.0-1.5); BG OXYGEN SATURATION 99.6 % (92.0-98.5); BG OXYHEMOGLOBIN 99.2 % (94.0-97.0); BG PH 7.439 (7.350-7.450); BG PO2 355.1 mmHg (75.0-100.0); BG SAMPLE SITE A-LINE; BG TOTAL HEMOGLOBIN 12.3 g/dL (12.0-18.0); BG VENT MODE MASK - NRB
[2018-04-20] MEDS: MORPHINE SULFATE 4 MG/ML CPJ (NOT FOR IM USE) IV PRN ×3 (01:54→20:39)
[2018-04-20] MEDS: MAGNESIUM HYDROXIDE 400MG/5ML 30ML UDC PO SCH ×5 (01:54→22:49)
[2018-04-20] MEDS: CEFAZOLIN 1000MG PREMIX 50 ML IV SCH ×3 (05:30→17:50)
[2018-04-20 07:23] LABS: HEMATOCRIT. 32.2 % (36.0-48.0); HEMOGLOBIN. 11.3 g/dL (12.0-16.0); LYMPHOCYTES % 10.7 % (20.0-50.0); MEAN CORPUSCULAR HEMOGLOBIN 33.3 pg (28.0-32.0); MEAN CORPUSCULAR VOLUME 94.9 fL (81.0-99.0); MEAN PLATELET VOLUME 8.8 fl (7.4-10.4); MONOCYTES % 6.7 % (2.0-8.0); NEUTROPHILS % 82.6 % (40.0-76.0); PLATELET 195 x1000/uL (130-400); RED BLOOD CELL COUNT 3.39 mill/uL (4.2-5.4); RED CELL DISTRIBUTION WIDTH 13.6 % (11.6-14.6)
[2018-04-20] MEDS: FAMOTIDINE 20MG/2ML VIAL IV SCH (09:37)
[2018-04-20] MEDS: DOCUSATE SODIUM 100MG CAPSULE PO SCH ×2 (09:38→17:52)
[2018-04-20] MEDS ORDERED: KCL 10MEQ/50ML PREMIX 150 ML IV PRN (10:30)
[2018-04-20] MEDS ORDERED: KCL 10MEQ/50ML PREMIX 200 ML IV PRN (10:30)
[2018-04-20] MEDS: OXYCODONE HCL/ACETAMINOPHEN 5/325MG TABLET PO PRN (12:33)
[2018-04-20] MEDS: DEXT 5%/0.45% NACL 1000ML 1,000 ML IV SCH (13:14)
[2018-04-20] MEDS: ONDANSETRON HCL 4MG/2ML INJ IV PRN ×2 (13:14→17:52)
[2018-04-20 15:41] LABS: CHLORIDE 102 mEq/L (98-107)
[2018-04-20] MEDS ORDERED: POTASSIUM CHLORIDE 20MEQ/PACKET PO NR (17:30)
[2018-04-21] VITALS (56 sets, daily range): BP systolic 95–166; BP diastolic 42–92
[2018-04-21] MEDS: IPRATROPIUM/ALBUTEROL 0.5-3(2.5)MG/3ML NEB HHN SCH ×5 (04:04→20:13)
[2018-04-21 05:36] LABS: CHLORIDE 105 mEq/L (98-107)
[2018-04-21 05:56] LABS: BASOPHILS % 0.1 % (0.0-2.0); EOSINOPHILS % 0.1 % (0.0-5.0); HEMATOCRIT. 29.1 % (36.0-48.0); HEMOGLOBIN. 9.7 g/dL (12.0-16.0); LYMPHOCYTES % 7.2 % (20.0-50.0); MEAN CORPUSCULAR HEMOGLOBIN 32.3 pg (28.0-32.0); MEAN CORPUSCULAR VOLUME 96.3 fL (81.0-99.0); MEAN PLATELET VOLUME 8.6 fl (7.4-10.4); MONOCYTES % 5.7 % (2.0-8.0); NEUTROPHILS % 86.9 % (40.0-76.0); PLATELET 185 x1000/uL (130-400); RED BLOOD CELL COUNT 3.02 mill/uL (4.2-5.4); RED CELL DISTRIBUTION WIDTH 13.6 % (11.6-14.6)
[2018-04-21] MEDS: DEXT 5%/0.45% NACL 1000ML 1,000 ML IV SCH ×2 (06:12→22:25)
[2018-04-21] MEDS: FAMOTIDINE 20MG/2ML VIAL IV SCH (11:02)
[2018-04-21] MEDS: DOCUSATE SODIUM 100MG CAPSULE PO SCH ×2 (11:03→16:55)
[2018-04-21] MEDS: MORPHINE SULFATE 4 MG/ML CPJ (NOT FOR IM USE) IV PRN (11:41)
[2018-04-21] MEDS ORDERED: DILTIAZEM HCL 120MG CAPSULE SR 12HR PO SCH (16:30)
[2018-04-21] MEDS: DILTIAZEM HCL 120MG CAPSULE CD 24HR PO SCH (16:55)
[2018-04-22] VITALS (37 sets, daily range): BP systolic 88–168; BP diastolic 35–93
[2018-04-22] MEDS: IPRATROPIUM/ALBUTEROL 0.5-3(2.5)MG/3ML NEB HHN SCH ×7 (00:22→20:47)
[2018-04-22] MEDS: OXYCODONE HCL/ACETAMINOPHEN 5/325MG TABLET PO PRN (05:33)
[2018-04-22 06:21] LABS: CHLORIDE 105 mEq/L (98-107)
[2018-04-22 08:57] LABS: BASOPHILS % 0.1 % (0.0-2.0); EOSINOPHILS % 0.9 % (0.0-5.0); HEMOGLOBIN. 8.8 g/dL (12.0-16.0); MEAN CORPUSCULAR HEMOGLOBIN 32.6 pg (28.0-32.0); MEAN CORPUSCULAR VOLUME 96.4 fL (81.0-99.0); MEAN PLATELET VOLUME 8.3 fl (7.4-10.4); MONOCYTES % 7.3 % (2.0-8.0); NEUTROPHILS % 82.7 % (40.0-76.0); PLATELET 168 x1000/uL (130-400); RED CELL DISTRIBUTION WIDTH 13.4 % (11.6-14.6)
[2018-04-22] MEDS: DILTIAZEM HCL 120MG CAPSULE CD 24HR PO SCH ×2 (09:00→17:01)
[2018-04-22] MEDS: FAMOTIDINE 20MG TABLET PO SCH (09:47)
[2018-04-22] MEDS: DOCUSATE SODIUM 100MG CAPSULE PO SCH ×2 (09:47→17:00)
[2018-04-22] MEDS: KCL 10MEQ/50ML PREMIX 100 ML IV PRN ×2 (09:47→11:56)
[2018-04-22] MEDS ORDERED: DILTIAZEM HCL 5MG/ML 5ML VIAL IV PRN (10:30)
[2018-04-22] MEDS: DEXT 5%/0.45% NACL 1000ML 1,000 ML IV SCH (15:40)
[2018-04-22] MEDS: MAGNESIUM HYDROXIDE 400MG/5ML 30ML UDC PO SCH ×2 (15:52→22:00)
[2018-04-23] VITALS (12 sets, daily range): BP systolic 92–134; BP diastolic 43–71
[2018-04-23] MEDS: DEXT 5%/0.45% NACL 1000ML 1,000 ML IV SCH ×3 (01:33→21:50)
[2018-04-23] MEDS: MAGNESIUM HYDROXIDE 400MG/5ML 30ML UDC PO SCH ×2 (04:00)
[2018-04-23 07:34] LABS: HEMATOCRIT. 27.1 % (36.0-48.0); HEMOGLOBIN. 9.1 g/dL (12.0-16.0); MEAN CORPUSCULAR HEMOGLOBIN 32.1 pg (28.0-32.0); MEAN CORPUSCULAR VOLUME 95.6 fL (81.0-99.0); MEAN PLATELET VOLUME 8.6 fl (7.4-10.4); PLATELET 195 x1000/uL (130-400); RED BLOOD CELL COUNT 2.84 mill/uL (4.2-5.4)
[2018-04-23 07:54] LABS: CHLORIDE 103 mEq/L (98-107)
[2018-04-23 08:10] LABS: LDL CHOLESTEROL 47 mg/dL (5-100)
[2018-04-23 08:12] LABS: HDL CHOLESTEROL 52 mg/dL (40-59)
[2018-04-23] MEDS: FAMOTIDINE 20MG TABLET PO SCH (08:22)
[2018-04-23] MEDS: DILTIAZEM HCL 120MG CAPSULE CD 24HR PO SCH ×2 (08:22→17:00)
[2018-04-23] MEDS: DOCUSATE SODIUM 100MG CAPSULE PO SCH ×2 (08:23→17:00)
[2018-04-23] MEDS: IPRATROPIUM/ALBUTEROL 0.5-3(2.5)MG/3ML NEB HHN SCH ×4 (08:42→20:48)
[2018-04-23 10:40] LABS: PLATELET ESTIMATE NORMAL
[2018-04-24] VITALS (9 sets, daily range): BP systolic 94–158; BP diastolic 37–77
[2018-04-24] MEDS: IPRATROPIUM/ALBUTEROL 0.5-3(2.5)MG/3ML NEB HHN SCH ×4 (00:42→11:49)
[2018-04-24] MEDS: DOCUSATE SODIUM 100MG CAPSULE PO SCH (08:52)
[2018-04-24] MEDS: DILTIAZEM HCL 120MG CAPSULE CD 24HR PO SCH (08:53)
[2018-04-24] MEDS: FAMOTIDINE 20MG TABLET PO SCH (08:53)
== END 2018-04-24 15:28 | disposition home health service (06) | DRG 167 ==
LOC: OR 12:13 → CVICU 18:53 → 3WST 04-22 18:22
PROVIDERS: ADMIT Thoracic Surgery (Cardiothoracic Vascular Surgery); ATTEND Thoracic Surgery (Cardiothoracic Vascular Surgery)
PROC: 0BBC4ZX Excision of Right Upper Lung Lobe, Percutaneous Endoscopic Approach, Diagnostic (ICD-10-PCS; 2018-04-19)
PROC: 0W9940Z Drainage of Right Pleural Cavity with Drainage Device, Percutaneous Endoscopic Approach (ICD-10-PCS; 2018-04-19)
PROC: 0BBD4ZX Excision of Right Middle Lung Lobe, Percutaneous Endoscopic Approach, Diagnostic (ICD-10-PCS; principal; 2018-04-19 13:30)
PROC: 05HY33Z Insertion of Infusion Device into Upper Vein, Percutaneous Approach (ICD-10-PCS; 2018-04-21)
PROC: B54NZZA Ultrasonography of Left Upper Extremity Veins, Guidance (ICD-10-PCS; 2018-04-21)
DX: R91.8 Other nonspecific abnormal finding of lung field (principal); R64 Cachexia; N39.0 Urinary tract infection, site not specified; E87.1 Hypo-osmolality and hyponatremia; I47.1 Supraventricular tachycardia; Z96.649 Presence of unspecified artificial hip joint; Z96.659 Presence of unspecified artificial knee joint; D64.9 Anemia, unspecified; R06.89 Other abnormalities of breathing; E87.6 Hypokalemia; J44.9 Chronic obstructive pulmonary disease, unspecified; I10 Essential (primary) hypertension; Z86.73 Personal history of transient ischemic attack (TIA), and cerebral infarction without residual deficits; Z87.01 Personal history of pneumonia (recurrent); Z90.710 Acquired absence of both cervix and uterus; Z68.24 Body mass index [BMI] 24.0-24.9, adult
CPT/HCPCS: 36415; 36569; 36600; 71045; 73706; 76937; 80048; 80061; 82375; 82805; 83735; 84443; 86850; 86900; 88305; 88307; 88312; 88331; 93005; 93306; 94640; 97116; 97162; 97167; 97530; 97535; C1725; C1893; J0171; J0690; J2250; J2270; J2405; J3010; J3480; J3490; J7620

== ENCOUNTER 2018-05-08 12:03 | Emergency (ER) | payer MEDICARE, BC ==
[~2018-05-08] VITALS: Ht 172.7 cm; Wt 55.0 kg
[~2018-05-08 12:03] MED LIST changes: +ATOR10TA69 PO; +IPRA42SP BOTHNSTRLS
[2018-05-08] MEDS ORDERED: ASPIRIN 81MG TABLET PO ONE (12:30)
[2018-05-08] MEDS ORDERED: ALBUTEROL (0.5%) 2.5MG/0.5ML NEB HHN ONE (12:30)
[2018-05-08 13:19] LABS: BASOPHILS % 0.7 % (0.0-2.0); EOSINOPHILS % 1.1 % (0.0-5.0); HEMATOCRIT. 30.3 % (36.0-48.0); HEMOGLOBIN. 10.5 g/dL (12.0-16.0); LYMPHOCYTES % 20.7 % (20.0-50.0); MEAN CORPUSCULAR HEMOGLOBIN 32.1 pg (28.0-32.0); MEAN CORPUSCULAR VOLUME 92.8 fL (81.0-99.0); MEAN PLATELET VOLUME 8.2 fl (7.4-10.4); MONOCYTES % 7.8 % (2.0-8.0); NEUTROPHILS % 69.7 % (40.0-76.0); PLATELET 468 x1000/uL (130-400); RED BLOOD CELL COUNT 3.27 mill/uL (4.2-5.4); RED CELL DISTRIBUTION WIDTH 13.4 % (11.6-14.6)
[2018-05-08 13:28] LABS: CHLORIDE 99 mEq/L (98-107); INR 1.2; PARTIAL THROMBOPLASTIN TIME 30.5 sec (23.4-31.0); PROTHROMBIN TIME 12.2 sec (9.1-11.1)
[2018-05-08 13:40] LABS: CREATINE KINASE 29 IU/L (26-192)
[2018-05-08] MEDS ORDERED: ASPIRIN 325MG EC TABLET PO ONE (14:00)
[2018-05-08 15:29] LABS: CLARITY URINE CLEAR (CLEAR); COLOR URINE YELLOW (YELLOW); KETONES URINE NEGATIVE (NEGATIVE); LEUKOCYTE ESTERASE URINE 2+ (NEGATIVE); NITRITE URINE NEGATIVE (NEGATIVE); OCCULT BLOOD URINE TRACE (NEGATIVE); PROTEIN URINE TRACE (NEGATIVE); SPECIFIC GRAVITY URINE 1.007 (1.005-1.030); UROBILINOGEN URINE 0.2 E.U./dL (0.2-1.0)
[2018-05-08] MEDS ORDERED: IOHEXOL-350 100 ML BOTTLE ONE (19:00)
[2018-05-08 20:55] VITALS: BP 146/61
== END 2018-05-08 21:01 | disposition left against medical advice (07) ==
LOC: ER 12:03 → EDBEDREQ 16:56 → ENRESERV 20:23 → ER 21:01 → CANBEDREQ 21:43
DX: R06.02 Shortness of breath (principal); R11.10 Vomiting, unspecified; R05 Cough; J44.9 Chronic obstructive pulmonary disease, unspecified; Z86.73 Personal history of transient ischemic attack (TIA), and cerebral infarction without residual deficits; Z90.710 Acquired absence of both cervix and uterus; Z96.659 Presence of unspecified artificial knee joint; Z96.649 Presence of unspecified artificial hip joint; Z98.890 Other specified postprocedural states; Z79.82 Long term (current) use of aspirin; Z88.2 Allergy status to sulfonamides; Z79.899 Other long term (current) drug therapy
CPT/HCPCS: 36415; 71045; 71275; 80053; 81003; 82550; 83605; 83880; 84484; 85025; 85610; 85730; 93005; 99284; Q9967

== ENCOUNTER 2019-02-22 10:19 | Inpatient (IN) | payer BC, MEDICARE ==
[~2019-02-22] VITALS: Ht 172.7 cm; Wt 67.1 kg
[2019-02-22 10:54] LABS: BG BASE EXCESS -6.3 mmol/L (-2.0-2.0); BG CARBOXYHEMOGLOBIN 0.3 % (0.5-1.5); BG DEOXYHEMOGLOBIN 1.7 % (0.0-5.0); BG FRACTION INSPIRED OXYGEN 100; BG HCO3 ACT 16.7 mmol/L (22.0-26.0); BG METHEMOGLOBIN 0.3 % (0.0-1.5); BG OXYGEN SATURATION 98.3 % (92.0-98.5); BG OXYHEMOGLOBIN 97.7 % (94.0-97.0); BG PCO2 26.2 mmHg (35.0-45.0); BG PH 7.423 (7.350-7.450); BG PO2 116.6 mmHg (75.0-100.0); BG SAMPLE SITE RIGHT BRACHIAL; BG TOTAL HEMOGLOBIN 11.4 g/dL (12.0-18.0); BG VENT MODE MASK - NRB
[2019-02-22 11:22] LABS: BASOPHILS % 0.2 % (0.0-2.0); EOSINOPHILS % 0.1 % (0.0-5.0); HEMATOCRIT. 31.4 % (36.0-48.0); HEMOGLOBIN. 10.6 g/dL (12.0-16.0); MEAN CORPUSCULAR HEMOGLOBIN 31.9 pg (28.0-32.0); MEAN CORPUSCULAR VOLUME 94.3 fL (81.0-99.0); MEAN PLATELET VOLUME 7.8 fl (7.4-10.4); MONOCYTES % 5.2 % (2.0-8.0); NEUTROPHILS % 73.5 % (40.0-76.0); PLATELET 144 x1000/uL (130-400); RED BLOOD CELL COUNT 3.33 mill/uL (4.2-5.4); RED CELL DISTRIBUTION WIDTH 14.8 % (11.6-14.6)
[2019-02-22 11:30] LABS: CHLORIDE 105 mEq/L (98-107); INR 1.2; PROTHROMBIN TIME 12.5 sec (9.6-11.0)
[2019-02-22 12:32] LABS: CLARITY URINE CLEAR (CLEAR); COLOR URINE YELLOW (YELLOW)
[2019-02-22 12:33] LABS: KETONES URINE NEGATIVE (NEGATIVE); LEUKOCYTE ESTERASE URINE NEGATIVE (NEGATIVE); NITRITE URINE NEGATIVE (NEGATIVE); OCCULT BLOOD URINE 2+ (NEGATIVE); PH URINE 6.5 (4.5-8.0); PROTEIN URINE 2+ (NEGATIVE)
[2019-02-22] MEDS ORDERED: DILTIAZEM HCL 60MG TABLET PO NR (13:26)
[2019-02-22] MEDS ORDERED: SODIUM CHLORIDE 0.9% 1,000 ML IV ONE (13:45)
[2019-02-22 15:36] VITALS: BP 126/55
[2019-02-22 18:00] VITALS: BP 117/63
[2019-02-22] MEDS ORDERED: ENOXAPARIN 30MG/0.3ML SYR SUBCUT SCH (18:00)
[2019-02-22] MEDS: NITROGLYCERIN OINT 1GM/INCH UDPKT TD SCH (18:21)
[2019-02-22] MEDS ORDERED: INFLUENZA VIRUS VACCINE(AFLURIA) 0.5ML SYR IM ONE (19:00)
[2019-02-22 20:00] VITALS: BP 126/62
[2019-02-22] MEDS ORDERED: PNEUMOCOCCAL 23-VAL P-SAC VAC 0.5 ML IM ONE (21:00)
[2019-02-23] VITALS (14 sets, daily range): BP systolic 89–151; BP diastolic 45–119
[2019-02-23] MEDS: NITROGLYCERIN OINT 1GM/INCH UDPKT TD SCH ×2 (00:16→05:13)
[2019-02-23 06:13] LABS: BASOPHILS % 0.3 % (0.0-2.0); HEMATOCRIT. 29.8 % (36.0-48.0); HEMOGLOBIN. 10.2 g/dL (12.0-16.0); LYMPHOCYTES % 11.3 % (20.0-50.0); MEAN CORPUSCULAR HEMOGLOBIN 31.8 pg (28.0-32.0); MEAN CORPUSCULAR VOLUME 93.3 fL (81.0-99.0); MEAN PLATELET VOLUME 8.7 fl (7.4-10.4); NEUTROPHILS % 82.4 % (40.0-76.0); PLATELET 146 x1000/uL (130-400); RED CELL DISTRIBUTION WIDTH 14.6 % (11.6-14.6)
[2019-02-23] MEDS ORDERED: MEDICATION NOT ON FORMULARY EA (Diltiazem HCl (Diltiazem ER) 240 MG) PO SCH (09:30)
[2019-02-23] MEDS ORDERED: NON FORMULARY PATIENT HOME MED XX SCH (09:30)
[2019-02-23] MEDS: MEGESTROL ACETATE 40MG TABLET PO SCH (10:12)
[2019-02-23] MEDS: ATORVASTATIN CALCIUM 10MG TABLET PO SCH (10:13)
[2019-02-23] MEDS: LOPERAMIDE HCL 2MG CAPSULE PO PRN (10:13)
[2019-02-23] MEDS: LACTOBACILLUS GG CAPSULE PO SCH (10:13)
[2019-02-23] MEDS: ACETAMINOPHEN 325MG TABLET PO PRN (11:54)
[2019-02-23] MEDS ORDERED: LIDOCAINE HCL 1% 20ML VIAL (Pyxis) INJ ONE (12:08)
[2019-02-23] MEDS ORDERED: SODIUM BICARBONATE 4% (2.4MEQ) 5ML VIAL IV ONE (12:08)
[2019-02-23] MEDS ORDERED: ENOXAPARIN 60MG/0.6ML SYR SUBCUT SCH (13:30)
[2019-02-23] MEDS: DILTIAZEM HCL 120MG CAPSULE CD 24HR PO SCH (14:23)
[2019-02-23] MEDS: ASPIRIN/DIPYRIDAMOLE 25MG/200MG CAPSULE SA PO SCH (21:23)
[2019-02-24] VITALS (15 sets, daily range): BP systolic 92–137; BP diastolic 35–109
[2019-02-24 07:17] LABS: BASOPHILS % 0.2 % (0.0-2.0); EOSINOPHILS % 0.1 % (0.0-5.0); HEMATOCRIT. 30.3 % (36.0-48.0); HEMOGLOBIN. 10.4 g/dL (12.0-16.0); LYMPHOCYTES % 9.2 % (20.0-50.0); MEAN CORPUSCULAR HEMOGLOBIN 31.8 pg (28.0-32.0); MEAN CORPUSCULAR VOLUME 92.6 fL (81.0-99.0); MEAN PLATELET VOLUME 9.1 fl (7.4-10.4); MONOCYTES % 4.9 % (2.0-8.0); NEUTROPHILS % 85.6 % (40.0-76.0); PLATELET 150 x1000/uL (130-400); RED BLOOD CELL COUNT 3.27 mill/uL (4.2-5.4); RED CELL DISTRIBUTION WIDTH 14.7 % (11.6-14.6)
[2019-02-24] MEDS: MEGESTROL ACETATE 40MG TABLET PO SCH (08:20)
[2019-02-24] MEDS: LACTOBACILLUS GG CAPSULE PO SCH (08:20)
[2019-02-24] MEDS: ATORVASTATIN CALCIUM 10MG TABLET PO SCH (08:20)
[2019-02-24] MEDS: ASPIRIN/DIPYRIDAMOLE 25MG/200MG CAPSULE SA PO SCH ×2 (08:20→21:54)
[2019-02-24] MEDS: DILTIAZEM HCL 120MG CAPSULE CD 24HR PO SCH (08:21)
[2019-02-24] MEDS ORDERED: ENOXAPARIN 60MG/0.6ML SYR SUBCUT SCH (11:30)
[2019-02-24] MEDS: SODIUM CHLORIDE 0.9% 1,000 ML IV SCH (11:40)
[2019-02-24] MEDS: BENZONATATE 100MG CAPSULE PO SCH (21:54)
[2019-02-24] MEDS ORDERED: GUAIFENESIN/CODEINE 100-10MG/5ML UDC PO PRN (22:00)
[2019-02-25] VITALS (13 sets, daily range): BP systolic 104–134; BP diastolic 45–61
[2019-02-25] MEDS: SODIUM CHLORIDE 0.9% 1,000 ML IV SCH ×2 (03:56→22:02)
[2019-02-25] MEDS: BENZONATATE 100MG CAPSULE PO SCH ×3 (06:29→22:02)
[2019-02-25 08:01] LABS: BASOPHILS % 0.1 % (0.0-2.0); EOSINOPHILS % 1.1 % (0.0-5.0); HEMATOCRIT. 31.5 % (36.0-48.0); HEMOGLOBIN. 10.6 g/dL (12.0-16.0); LYMPHOCYTES % 8.5 % (20.0-50.0); MEAN CORPUSCULAR HEMOGLOBIN 31.8 pg (28.0-32.0); MONOCYTES % 5.9 % (2.0-8.0); NEUTROPHILS % 84.4 % (40.0-76.0); PLATELET 139 x1000/uL (130-400); RED BLOOD CELL COUNT 3.32 mill/uL (4.2-5.4); RED CELL DISTRIBUTION WIDTH 14.6 % (11.6-14.6)
[2019-02-25] MEDS: LACTOBACILLUS GG CAPSULE PO SCH (08:52)
[2019-02-25] MEDS: ENOXAPARIN 60MG/0.6ML SYR SUBCUT SCH (08:52)
[2019-02-25] MEDS: MEGESTROL ACETATE 40MG TABLET PO SCH (08:52)
[2019-02-25] MEDS: ASPIRIN/DIPYRIDAMOLE 25MG/200MG CAPSULE SA PO SCH ×2 (08:52→22:03)
[2019-02-25] MEDS: LOPERAMIDE HCL 2MG CAPSULE PO PRN (08:52)
[2019-02-25] MEDS: ATORVASTATIN CALCIUM 10MG TABLET PO SCH (08:52)
[2019-02-25] MEDS ORDERED: SODIUM POLYSTYRENE SULFONATE 15 G/60 ML BOT PO SCH (09:00)
[2019-02-25] MEDS ORDERED: SORBITOL 70% SOLN 30ML PO SCH (09:00)
[2019-02-25] MEDS: MEGESTROL ACETATE 400 MG/10 ML UDC PO SCH (13:00)
[2019-02-25] MEDS: DILTIAZEM HCL 60MG TABLET PO SCH ×2 (14:19→22:02)
[2019-02-25] MEDS: NYSTATIN POWDER 15GM TOP SCH (17:52)
[2019-02-26] VITALS (12 sets, daily range): BP systolic 101–150; BP diastolic 41–109
[2019-02-26] MEDS: ACETAMINOPHEN 325MG TABLET PO PRN ×3 (00:03→22:14)
[2019-02-26] MEDS: BENZONATATE 100MG CAPSULE PO SCH ×3 (06:14→21:55)
[2019-02-26] MEDS: DILTIAZEM HCL 60MG TABLET PO SCH ×3 (06:16→21:55)
[2019-02-26] MEDS: MEGESTROL ACETATE 400 MG/10 ML UDC PO SCH (08:52)
[2019-02-26] MEDS: ASPIRIN/DIPYRIDAMOLE 25MG/200MG CAPSULE SA PO SCH ×2 (08:52→21:55)
[2019-02-26] MEDS: LACTOBACILLUS GG CAPSULE PO SCH (08:52)
[2019-02-26] MEDS: ATORVASTATIN CALCIUM 10MG TABLET PO SCH (08:52)
[2019-02-26] MEDS: ENOXAPARIN 60MG/0.6ML SYR SUBCUT SCH (08:52)
[2019-02-26] MEDS: GUAIFENESIN/CODEINE 200-20MG/10ML UDC PO PRN (14:30)
[2019-02-26] MEDS: SODIUM CHLORIDE 0.9% 1,000 ML IV SCH (14:30)
[2019-02-26] MEDS: NYSTATIN POWDER 15GM TOP SCH (16:48)
[2019-02-27] VITALS (12 sets, daily range): BP systolic 102–141; BP diastolic 36–97
[2019-02-27] MEDS: SODIUM CHLORIDE 0.9% 1,000 ML IV SCH ×2 (05:55→11:59)
[2019-02-27 05:56] LABS: HEMATOCRIT. 27.4 % (36.0-48.0); HEMOGLOBIN. 9.4 g/dL (12.0-16.0); MEAN CORPUSCULAR VOLUME 93.8 fL (81.0-99.0); MEAN PLATELET VOLUME 9.3 fl (7.4-10.4); PLATELET 174 x1000/uL (130-400); RED BLOOD CELL COUNT 2.92 mill/uL (4.2-5.4); RED CELL DISTRIBUTION WIDTH 14.6 % (11.6-14.6)
[2019-02-27] MEDS: BENZONATATE 100MG CAPSULE PO SCH ×3 (06:31→22:08)
[2019-02-27] MEDS: DILTIAZEM HCL 60MG TABLET PO SCH ×3 (06:31→23:01)
[2019-02-27 06:57] LABS: PHOSPHORUS 1.3 mg/dL (2.5-4.9)
[2019-02-27] MEDS: ASPIRIN/DIPYRIDAMOLE 25MG/200MG CAPSULE SA PO SCH ×2 (08:34→22:07)
[2019-02-27] MEDS: MEGESTROL ACETATE 400 MG/10 ML UDC PO SCH (08:34)
[2019-02-27] MEDS: LACTOBACILLUS GG CAPSULE PO SCH (08:34)
[2019-02-27] MEDS: ENOXAPARIN 60MG/0.6ML SYR SUBCUT SCH (08:35)
[2019-02-27] MEDS: ATORVASTATIN CALCIUM 10MG TABLET PO SCH (08:43)
[2019-02-27] MEDS: NYSTATIN POWDER 15GM TOP SCH ×2 (14:37→17:00)
[2019-02-27] MEDS: CYPROHEPTADINE HCL 4 MG TABLET PO SCH ×2 (14:37→22:07)
[2019-02-27 16:18] LABS: PLATELET ESTIMATE NORMAL
[2019-02-27] MEDS: GUAIFENESIN/CODEINE 200-20MG/10ML UDC PO PRN (16:45)
[2019-02-28] VITALS (13 sets, daily range): BP systolic 91–148; BP diastolic 38–80
[2019-02-28] MEDS ORDERED: LEVOFLOXACIN 500MG PREMIX 100 ML IV NR (04:00)
[2019-02-28] MEDS: GUAIFENESIN/CODEINE 200-20MG/10ML UDC PO PRN (04:20)
[2019-02-28 05:23] LABS: HEMOGLOBIN. 8.3 g/dL (12.0-16.0); MEAN PLATELET VOLUME 8.8 fl (7.4-10.4); PLATELET 195 x1000/uL (130-400); RED BLOOD CELL COUNT 2.58 mill/uL (4.2-5.4); RED CELL DISTRIBUTION WIDTH 14.3 % (11.6-14.6)
[2019-02-28] MEDS: DILTIAZEM HCL 60MG TABLET PO SCH ×3 (05:46→20:34)
[2019-02-28] MEDS: CYPROHEPTADINE HCL 4 MG TABLET PO SCH ×3 (05:47→20:33)
[2019-02-28] MEDS: BENZONATATE 100MG CAPSULE PO SCH ×3 (05:47→20:32)
[2019-02-28] MEDS: ATORVASTATIN CALCIUM 10MG TABLET PO SCH (08:00)
[2019-02-28] MEDS: ASPIRIN/DIPYRIDAMOLE 25MG/200MG CAPSULE SA PO SCH ×2 (08:00→20:32)
[2019-02-28] MEDS: LACTOBACILLUS GG CAPSULE PO SCH (08:02)
[2019-02-28] MEDS: APIXABAN 5 MG TABLET PO SCH ×2 (08:02→18:19)
[2019-02-28] MEDS: MEGESTROL ACETATE 400 MG/10 ML UDC PO SCH (08:11)
[2019-02-28] MEDS ORDERED: POTASSIUM CHLORIDE 20MEQ/PACKET PO SCH (10:00)
[2019-02-28] MEDS: SODIUM CHLORIDE 0.9% 1,000 ML IV SCH (15:15)
[2019-02-28] MEDS: NYSTATIN POWDER 15GM TOP SCH (17:00)
[2019-02-28 20:16] LABS: PLATELET ESTIMATE NORMAL
[2019-03-01] VITALS (14 sets, daily range): BP systolic 115–144; BP diastolic 46–100
[2019-03-01] MEDS: ACETAMINOPHEN 325MG TABLET PO PRN (00:10)
[2019-03-01] MEDS: BENZONATATE 100MG CAPSULE PO SCH ×3 (04:56→21:24)
[2019-03-01] MEDS: CYPROHEPTADINE HCL 4 MG TABLET PO SCH ×3 (04:56→21:24)
[2019-03-01] MEDS: DILTIAZEM HCL 60MG TABLET PO SCH ×3 (04:57→21:29)
[2019-03-01 07:33] LABS: HEMOGLOBIN. 9.4 g/dL (12.0-16.0); MEAN CORPUSCULAR HEMOGLOBIN 32.1 pg (28.0-32.0); MEAN CORPUSCULAR VOLUME 92.4 fL (81.0-99.0); MEAN PLATELET VOLUME 9.1 fl (7.4-10.4); PLATELET 262 x1000/uL (130-400); RED BLOOD CELL COUNT 2.92 mill/uL (4.2-5.4); RED CELL DISTRIBUTION WIDTH 14.7 % (11.6-14.6)
[2019-03-01] MEDS: LEVOFLOXACIN 250MG PREMIX 50 ML IV SCH (07:54)
[2019-03-01] MEDS: MEGESTROL ACETATE 400 MG/10 ML UDC PO SCH (08:00)
[2019-03-01] MEDS: ATORVASTATIN CALCIUM 10MG TABLET PO SCH (08:00)
[2019-03-01] MEDS: LACTOBACILLUS GG CAPSULE PO SCH (08:00)
[2019-03-01] MEDS: ASPIRIN/DIPYRIDAMOLE 25MG/200MG CAPSULE SA PO SCH ×2 (08:00→21:25)
[2019-03-01] MEDS: APIXABAN 5 MG TABLET PO SCH ×2 (08:00→17:05)
[2019-03-01 08:40] LABS: CHLORIDE 115 mEq/L (98-107)
[2019-03-01 10:59] LABS: PLATELET ESTIMATE NORMAL
[2019-03-01] MEDS ORDERED: CYPR4TAB43 PO (14:47)
[2019-03-01] MEDS ORDERED: MIRA25TA MT (14:48)
[2019-03-01] MEDS: NYSTATIN POWDER 15GM TOP SCH (17:00)
[2019-03-01] MEDS: SODIUM CHLORIDE 0.9% 1,000 ML IV SCH (17:10)
[2019-03-02] VITALS (11 sets, daily range): BP systolic 116–153; BP diastolic 50–100
[2019-03-02] MEDS: SODIUM CHLORIDE 0.9% 1,000 ML IV SCH ×2 (00:35→16:54)
[2019-03-02] MEDS: CYPROHEPTADINE HCL 4 MG TABLET PO SCH ×3 (05:43→23:17)
[2019-03-02] MEDS: BENZONATATE 100MG CAPSULE PO SCH ×3 (05:43→23:17)
[2019-03-02] MEDS: DILTIAZEM HCL 60MG TABLET PO SCH ×3 (05:44→23:21)
[2019-03-02 06:22] LABS: BASOPHILS % 0.3 % (0.0-2.0); EOSINOPHILS % 0.4 % (0.0-5.0); HEMATOCRIT. 27.5 % (36.0-48.0); HEMOGLOBIN. 9.4 g/dL (12.0-16.0); LYMPHOCYTES % 11.2 % (20.0-50.0); MEAN CORPUSCULAR HEMOGLOBIN 31.6 pg (28.0-32.0); MEAN CORPUSCULAR VOLUME 92.5 fL (81.0-99.0); MEAN PLATELET VOLUME 8.5 fl (7.4-10.4); MONOCYTES % 7.1 % (2.0-8.0); PLATELET 316 x1000/uL (130-400); RED BLOOD CELL COUNT 2.98 mill/uL (4.2-5.4); RED CELL DISTRIBUTION WIDTH 14.7 % (11.6-14.6)
[2019-03-02 06:35] LABS: CHLORIDE 115 mEq/L (98-107)
[2019-03-02] MEDS: ASPIRIN/DIPYRIDAMOLE 25MG/200MG CAPSULE SA PO SCH ×2 (08:32→23:17)
[2019-03-02] MEDS: MEGESTROL ACETATE 400 MG/10 ML UDC PO SCH (08:32)
[2019-03-02] MEDS: LACTOBACILLUS GG CAPSULE PO SCH (08:34)
[2019-03-02] MEDS: NYSTATIN POWDER 15GM TOP SCH ×2 (08:36→16:54)
[2019-03-02] MEDS: LEVOFLOXACIN 250MG PREMIX 50 ML IV SCH (08:36)
[2019-03-02] MEDS: APIXABAN 5 MG TABLET PO SCH ×2 (08:37→16:54)
[2019-03-02] MEDS: ATORVASTATIN CALCIUM 10MG TABLET PO SCH (08:37)
[2019-03-02] MEDS ORDERED: MAGNESIUM 1 G PREMIX 100 ML IV NR (11:00)
[2019-03-02] MEDS ORDERED: DOCUSATE SODIUM SUGAR FREE 100MG/10ML UDC NG PRN (14:30)
[2019-03-02] MEDS ORDERED: DILTIAZEM HCL 5MG/ML 5ML VIAL IV PRN (16:45)
[2019-03-03] VITALS (9 sets, daily range): BP systolic 127–155; BP diastolic 55–79
[2019-03-03] MEDS: DILTIAZEM HCL 60MG TABLET PO SCH ×2 (05:37→14:31)
[2019-03-03] MEDS: BENZONATATE 100MG CAPSULE PO SCH ×2 (05:37→14:31)
[2019-03-03] MEDS: CYPROHEPTADINE HCL 4 MG TABLET PO SCH ×2 (05:37→14:31)
[2019-03-03] MEDS: APIXABAN 5 MG TABLET PO SCH (09:16)
[2019-03-03] MEDS: MEGESTROL ACETATE 400 MG/10 ML UDC PO SCH (09:16)
[2019-03-03] MEDS: LEVOFLOXACIN 250MG PREMIX 50 ML IV SCH (09:16)
[2019-03-03] MEDS: NYSTATIN POWDER 15GM TOP SCH (09:17)
[2019-03-03] MEDS: SODIUM CHLORIDE 0.9% 1,000 ML IV SCH (09:17)
[2019-03-03] MEDS: LACTOBACILLUS GG CAPSULE PO SCH (09:17)
[2019-03-03] MEDS: ASPIRIN/DIPYRIDAMOLE 25MG/200MG CAPSULE SA PO SCH (09:17)
[2019-03-03] MEDS: ATORVASTATIN CALCIUM 10MG TABLET PO SCH (09:17)
[2019-03-03] MEDS ORDERED: AMIODARONE HCL 200 MG TABLET PO SCH (21:00)
[2019-03-07] MEDS ORDERED: APIXABAN 5 MG TABLET PO SCH (09:00)
== END 2019-03-03 16:15 | DRG 280 ==
LOC: ER 10:19 → 3WST 13:46 → EDBEDREQ 13:50 → ENRESERV 14:09
PROVIDERS: ADMIT Internal Medicine; ATTEND Internal Medicine
PROC: 5A09357 Assistance with Respiratory Ventilation, Less than 24 Consecutive Hours, Continuous Positive Airway Pressure (ICD-10-PCS; 2019-02-22)
PROC: 02HV33Z Insertion of Infusion Device into Superior Vena Cava, Percutaneous Approach (ICD-10-PCS; principal; 2019-02-23)
PROC: B5181ZA Fluoroscopy of Superior Vena Cava using Low Osmolar Contrast, Guidance (ICD-10-PCS; 2019-02-23)
PROC: B548ZZA Ultrasonography of Superior Vena Cava, Guidance (ICD-10-PCS; 2019-02-23)
DX: I21.4 Non-ST elevation (NSTEMI) myocardial infarction (principal); I26.99 Other pulmonary embolism without acute cor pulmonale; J96.20 Acute and chronic respiratory failure, unspecified whether with hypoxia or hypercapnia; J96.21 Acute and chronic respiratory failure with hypoxia; J44.1 Chronic obstructive pulmonary disease with (acute) exacerbation; E87.2 Acidosis; J98.11 Atelectasis; E46 Unspecified protein-calorie malnutrition; N17.9 Acute kidney failure, unspecified; R64 Cachexia; I12.9 Hypertensive chronic kidney disease with stage 1 through stage 4 chronic kidney disease, or unspecified chronic kidney disease; I27.29 Other secondary pulmonary hypertension; I27.81 Cor pulmonale (chronic); N18.9 Chronic kidney disease, unspecified; I25.10 Atherosclerotic heart disease of native coronary artery without angina pectoris; E78.5 Hyperlipidemia, unspecified; D64.9 Anemia, unspecified; I48.0 Paroxysmal atrial fibrillation; Z83.3 Family history of diabetes mellitus; Z86.711 Personal history of pulmonary embolism; Z86.73 Personal history of transient ischemic attack (TIA), and cerebral infarction without residual deficits; Z96.642 Presence of left artificial hip joint; Z90.710 Acquired absence of both cervix and uterus; Z96.651 Presence of right artificial knee joint; Z99.81 Dependence on supplemental oxygen; Z88.2 Allergy status to sulfonamides; Z88.1 Allergy status to other antibiotic agents; R26.9 Unspecified abnormalities of gait and mobility; I27.20 Pulmonary hypertension, unspecified; Z68.22 Body mass index [BMI] 22.0-22.9, adult
CPT/HCPCS: 36415; 36573; 36600; 71045; 71250; 73502; 78582; 80048; 80061; 81003; 82375; 82805; 83036; 83605; 83735; 83880; 84100; 84132; 84145; 84484; 85379; 85651; 87015; 87045; 87427; 87449; 87493; 87804; 89055; 90471; 90686; 93005; 93306; 93970; 94660; 96372; 97112; 97116; 97162; 97167; 97530; 97535; 99291; A9558; C1725; J1650; J1956; J3475; J3490; J7030

== ENCOUNTER 2019-03-03 16:20 | Inpatient (IN) | payer BC ==
[~2019-03-03] VITALS: Ht 172.7 cm; Wt 57.4 kg
[~2019-03-03 16:20] MED LIST changes: -ATOR10TA69 PO; +CYPR4TAB43 PO; -DILT240T12 PO; -IPRA42SP BOTHNSTRLS; +MIRA25TA MT
[2019-03-03] MEDS ORDERED: ACETAMINOPHEN 325MG TABLET PO PRN (17:15)
[2019-03-03] MEDS ORDERED: LOPERAMIDE HCL 2MG CAPSULE PO PRN (17:15)
[2019-03-03] MEDS ORDERED: DOCUSATE SODIUM 100MG CAPSULE PO PRN (17:15)
[2019-03-03] MEDS ORDERED: BENZONATATE 100MG CAPSULE PO PRN (17:15)
[2019-03-03 17:35] VITALS: BP 116/75
[2019-03-03 18:04] LABS: CHLORIDE 111 mEq/L (98-107)
[2019-03-03 18:07] LABS: HEMATOCRIT. 30.6 % (36.0-48.0); HEMOGLOBIN. 9.9 g/dL (12.0-16.0); MEAN PLATELET VOLUME 8.4 fl (7.4-10.4); PLATELET 379 x1000/uL (130-400); RED BLOOD CELL COUNT 3.18 mill/uL (4.2-5.4)
[2019-03-03 20:00] VITALS: BP 143/49
[2019-03-03 20:04] LABS: PLATELET ESTIMATE NORMAL
[2019-03-03] MEDS: APIXABAN 5 MG TABLET PO SCH (20:19)
[2019-03-03] MEDS: ATORVASTATIN CALCIUM 10MG TABLET PO SCH (21:07)
[2019-03-03] MEDS: ASPIRIN/DIPYRIDAMOLE 25MG/200MG CAPSULE SA PO SCH (21:07)
[2019-03-03] MEDS: AMIODARONE HCL 200 MG TABLET PO SCH (21:07)
[2019-03-03] MEDS: CYPROHEPTADINE HCL 4 MG TABLET PO SCH (22:17)
[2019-03-03] MEDS: DILTIAZEM HCL 60MG TABLET PO SCH (22:19)
[2019-03-04] MEDS: GUAIFENESIN/CODEINE 100-10MG/5ML UDC PO PRN (03:36)
[2019-03-04] MEDS: CYPROHEPTADINE HCL 4 MG TABLET PO SCH ×3 (05:54→21:36)
[2019-03-04] MEDS: DILTIAZEM HCL 60MG TABLET PO SCH ×3 (05:54→21:36)
[2019-03-04 07:17] LABS: HEMATOCRIT. 27.2 % (36.0-48.0); HEMOGLOBIN. 9.2 g/dL (12.0-16.0); MEAN CORPUSCULAR HEMOGLOBIN 31.4 pg (28.0-32.0); MEAN CORPUSCULAR VOLUME 92.9 fL (81.0-99.0); MEAN PLATELET VOLUME 8.9 fl (7.4-10.4); PLATELET 401 x1000/uL (130-400); RED BLOOD CELL COUNT 2.93 mill/uL (4.2-5.4); RED CELL DISTRIBUTION WIDTH 14.8 % (11.6-14.6)
[2019-03-04 08:44] LABS: CHLORIDE 110 mEq/L (98-107)
[2019-03-04] MEDS ORDERED: NYSTATIN POWDER 15GM TOP SCH (09:00)
[2019-03-04] MEDS ORDERED: APIXABAN 5 MG TABLET PO SCH (09:00)
[2019-03-04] MEDS: NYSTATIN POWDER 15GM TOP SCH ×2 (09:00→17:31)
[2019-03-04] MEDS: LEVOFLOXACIN 250MG TABLET PO SCH (10:25)
[2019-03-04] MEDS: APIXABAN 5 MG TABLET PO SCH ×2 (10:25→17:31)
[2019-03-04] MEDS: ASPIRIN/DIPYRIDAMOLE 25MG/200MG CAPSULE SA PO SCH ×2 (10:25→20:19)
[2019-03-04] MEDS: LACTOBACILLUS GG CAPSULE PO SCH (10:26)
[2019-03-04] MEDS: AMIODARONE HCL 200 MG TABLET PO SCH ×2 (10:26→20:18)
[2019-03-04] MEDS: MEGESTROL ACETATE 400 MG/10 ML UDC PO SCH (10:26)
[2019-03-04 10:58] VITALS: BP 139/58
[2019-03-04 13:50] LABS: PLATELET ESTIMATE NORMAL
[2019-03-04] MEDS ORDERED: FUROSEMIDE 40MG TABLET PO SCH (19:45)
[2019-03-04] MEDS ORDERED: POTASSIUM CHLORIDE 20MEQ TABLET SR PO SCH (19:45)
[2019-03-04 20:00] VITALS: BP 140/54
[2019-03-04] MEDS: ATORVASTATIN CALCIUM 10MG TABLET PO SCH (20:18)
[2019-03-05] MEDS: CYPROHEPTADINE HCL 4 MG TABLET PO SCH ×3 (06:06→21:27)
[2019-03-05] MEDS: DILTIAZEM HCL 60MG TABLET PO SCH ×3 (06:06→21:27)
[2019-03-05 07:09] LABS: CHLORIDE 107 mEq/L (98-107)
[2019-03-05 07:16] LABS: PHOSPHORUS 3.3 mg/dL (2.5-4.9); TOTAL IRON BINDING CAPACITY 180 ug/dL (250-450)
[2019-03-05 07:19] LABS: CREATINE KINASE 28 IU/L (26-192)
[2019-03-05 07:51] LABS: HEMATOCRIT. 24.2 % (36.0-48.0); HEMOGLOBIN. 8.3 g/dL (12.0-16.0); MEAN CORPUSCULAR HEMOGLOBIN 31.8 pg (28.0-32.0); MEAN CORPUSCULAR VOLUME 92.4 fL (81.0-99.0); MEAN PLATELET VOLUME 8.4 fl (7.4-10.4); PLATELET 414 x1000/uL (130-400); RED BLOOD CELL COUNT 2.62 mill/uL (4.2-5.4); RED CELL DISTRIBUTION WIDTH 14.7 % (11.6-14.6)
[2019-03-05 07:57] VITALS: BP 102/63
[2019-03-05 08:16] LABS: CLARITY URINE CLOUDY (CLEAR); COLOR URINE YELLOW (YELLOW); KETONES URINE NEGATIVE (NEGATIVE); LEUKOCYTE ESTERASE URINE TRACE (NEGATIVE); NITRITE URINE NEGATIVE (NEGATIVE); OCCULT BLOOD URINE 2+ (NEGATIVE); PROTEIN URINE NEGATIVE (NEGATIVE); SPECIFIC GRAVITY URINE 1.009 (1.005-1.030); UROBILINOGEN URINE 0.2 E.U./dL (0.2-1.0)
[2019-03-05 08:16] LABS: FERRITIN 164 ng/mL (10-291)
[2019-03-05] MEDS: LACTOBACILLUS GG CAPSULE PO SCH (08:53)
[2019-03-05] MEDS: AMIODARONE HCL 200 MG TABLET PO SCH ×2 (08:53→20:35)
[2019-03-05] MEDS: MEGESTROL ACETATE 400 MG/10 ML UDC PO SCH (08:53)
[2019-03-05] MEDS: ASPIRIN/DIPYRIDAMOLE 25MG/200MG CAPSULE SA PO SCH ×2 (08:53→20:35)
[2019-03-05] MEDS: NYSTATIN POWDER 15GM TOP SCH ×2 (08:54→17:06)
[2019-03-05] MEDS: APIXABAN 5 MG TABLET PO SCH ×2 (09:15→17:05)
[2019-03-05] MEDS: LEVOFLOXACIN 250MG TABLET PO SCH (11:33)
[2019-03-05 11:49] LABS: PLATELET ESTIMATE SLIGHTLY INCREASED
[2019-03-05 13:27] LABS: VITAMIN B12 SERUM 1444 pg/mL (211-911)
[2019-03-05 13:41] LABS: FOLIC ACID (FOLATE) SERUM > 20.00 ng/mL (>5.38)
[2019-03-05] MEDS ORDERED: FUROSEMIDE 40MG/4ML VIAL IVP NR (15:30)
[2019-03-05] MEDS: GUAIFENESIN/CODEINE 100-10MG/5ML UDC PO PRN (17:05)
[2019-03-05] MEDS: PIPERACILLIN/TAZOBACTAM 2.25 G in DEXTROSE 5% WATER 50 ML IV SCH ×2 (17:06→23:11)
[2019-03-05 17:07] LABS: HEMATOCRIT. 23.1 % (36.0-48.0); HEMOGLOBIN. 7.9 g/dL (12.0-16.0); MEAN CORPUSCULAR HEMOGLOBIN 31.3 pg (28.0-32.0); MEAN PLATELET VOLUME 8.6 fl (7.4-10.4); PLATELET 430 x1000/uL (130-400); RED BLOOD CELL COUNT 2.51 mill/uL (4.2-5.4); RED CELL DISTRIBUTION WIDTH 14.8 % (11.6-14.6)
[2019-03-05] MEDS ORDERED: VANCOMYCIN 1 G PREMIX 200 ML IV SCH (18:00)
[2019-03-05 20:00] VITALS: BP 133/77
[2019-03-05] MEDS: ATORVASTATIN CALCIUM 10MG TABLET PO SCH (20:35)
[2019-03-05] MEDS: ALBUTEROL (0.083%) 2.5MG/3ML NEB HHN SCH (20:45)
[2019-03-05] MEDS ORDERED: IRON SUCROSE COMPLEX 100 MG in SODIUM CHLORIDE 0.9% 100 ML IV SCH (21:00)
[2019-03-06] MEDS: ALBUTEROL (0.083%) 2.5MG/3ML NEB HHN SCH ×4 (00:37→11:57)
[2019-03-06 05:24] LABS: PLATELET ESTIMATE SLIGHTLY INCREASED
[2019-03-06] MEDS: CYPROHEPTADINE HCL 4 MG TABLET PO SCH (05:25)
[2019-03-06] MEDS: PIPERACILLIN/TAZOBACTAM 2.25 G in DEXTROSE 5% WATER 50 ML IV SCH ×2 (05:25→11:56)
[2019-03-06] MEDS: DILTIAZEM HCL 60MG TABLET PO SCH (05:25)
[2019-03-06 08:00] VITALS: BP 119/56
[2019-03-06] MEDS: MEGESTROL ACETATE 400 MG/10 ML UDC PO SCH (08:58)
[2019-03-06] MEDS: AMIODARONE HCL 200 MG TABLET PO SCH (08:58)
[2019-03-06] MEDS: ASPIRIN/DIPYRIDAMOLE 25MG/200MG CAPSULE SA PO SCH (08:58)
[2019-03-06] MEDS: LACTOBACILLUS GG CAPSULE PO SCH (08:58)
[2019-03-06] MEDS: NYSTATIN POWDER 15GM TOP SCH (08:59)
[2019-03-06] MEDS ORDERED: APIXABAN 2.5 MG TABLET PO SCH (09:00)
[2019-03-06 09:22] LABS: HEMATOCRIT. 23.5 % (36.0-48.0); HEMOGLOBIN. 7.9 g/dL (12.0-16.0); MEAN CORPUSCULAR HEMOGLOBIN 31.1 pg (28.0-32.0); MEAN CORPUSCULAR VOLUME 92.3 fL (81.0-99.0); MEAN PLATELET VOLUME 8.2 fl (7.4-10.4); PLATELET 475 x1000/uL (130-400); RED BLOOD CELL COUNT 2.55 mill/uL (4.2-5.4); RED CELL DISTRIBUTION WIDTH 14.5 % (11.6-14.6)
[2019-03-06 10:27] LABS: BG BASE EXCESS -4.7 mmol/L (-2.0-2.0); BG CARBOXYHEMOGLOBIN 0.3 % (0.5-1.5); BG DEOXYHEMOGLOBIN 2.4 % (0.0-5.0); BG FRACTION INSPIRED OXYGEN 32; BG HCO3 ACT 19.7 mmol/L (22.0-26.0); BG METHEMOGLOBIN 0.3 % (0.0-1.5); BG OXYGEN SATURATION 97.6 % (92.0-98.5); BG PCO2 33.5 mmHg (35.0-45.0); BG PH 7.387 (7.350-7.450); BG PO2 112.5 mmHg (75.0-100.0); BG SAMPLE SITE RIGHT RADIAL; BG TOTAL HEMOGLOBIN 9.1 g/dL (12.0-18.0); BG VENT MODE NASAL CANNULA
[2019-03-06 13:43] VITALS: BP 130/65
[2019-03-06 13:55] VITALS: BP 130/65
[2019-03-06 16:16] LABS: PLATELET ESTIMATE INCREASED
[2019-03-06] MEDS ORDERED: APIXABAN 5 MG TABLET PO SCH (17:00)
[2019-03-07] MEDS ORDERED: APIXABAN 5 MG TABLET PO SCH (09:00)
[2019-03-10 04:07] LABS: 25-HYDROXY VITAMIN D3 28 ng/mL (.)
== END 2019-03-06 13:26 | disposition short-term general hospital (02) | DRG 190 ==
PROVIDERS: ADMIT Physical Medicine & Rehabilitation Spinal Cord Injury Medicine; ATTEND Internal Medicine
DX: J44.1 Chronic obstructive pulmonary disease with (acute) exacerbation (principal); J96.22 Acute and chronic respiratory failure with hypercapnia; I26.99 Other pulmonary embolism without acute cor pulmonale; I21.4 Non-ST elevation (NSTEMI) myocardial infarction; J18.9 Pneumonia, unspecified organism; J96.21 Acute and chronic respiratory failure with hypoxia; I47.1 Supraventricular tachycardia; E87.2 Acidosis; J98.11 Atelectasis; J84.10 Pulmonary fibrosis, unspecified; D50.9 Iron deficiency anemia, unspecified; R26.9 Unspecified abnormalities of gait and mobility; N18.9 Chronic kidney disease, unspecified; I12.9 Hypertensive chronic kidney disease with stage 1 through stage 4 chronic kidney disease, or unspecified chronic kidney disease; R13.10 Dysphagia, unspecified; E78.5 Hyperlipidemia, unspecified; Z96.642 Presence of left artificial hip joint; Z96.651 Presence of right artificial knee joint; D64.9 Anemia, unspecified; J44.9 Chronic obstructive pulmonary disease, unspecified; G89.29 Other chronic pain; M25.552 Pain in left hip; F80.9 Developmental disorder of speech and language, unspecified; I25.10 Atherosclerotic heart disease of native coronary artery without angina pectoris; I48.0 Paroxysmal atrial fibrillation; I27.20 Pulmonary hypertension, unspecified; R54 Age-related physical debility; Y95 Nosocomial condition; Z99.81 Dependence on supplemental oxygen; Z86.73 Personal history of transient ischemic attack (TIA), and cerebral infarction without residual deficits; Z88.2 Allergy status to sulfonamides; Z79.899 Other long term (current) drug therapy; Z79.01 Long term (current) use of anticoagulants; Z82.49 Family history of ischemic heart disease and other diseases of the circulatory system; Z83.3 Family history of diabetes mellitus
CPT/HCPCS: 36415; 36600; 71045; 80048; 80076; 81003; 82140; 82306; 82375; 82550; 82607; 82728; 82746; 82805; 83540; 83550; 83735; 84100; 84443; 85651; 92523; 92610; 93005; 93970; 94640; 97110; 97163; 97166; 97530; 97535; A6261; J1940; J2543; J3370; J7040; J7050; J7060; J7611

== ENCOUNTER 2019-03-06 13:40 | Inpatient (IN) | payer BC ==
[~2019-03-06] VITALS: Ht 172.7 cm; Wt 58.5 kg
[2019-03-06 13:45] VITALS: BP 130/65
[2019-03-06 14:00] VITALS: BP 130/65
[2019-03-06] MEDS ORDERED: FUROSEMIDE 40MG/4ML VIAL IVP ONE (14:30)
[2019-03-06 16:00] VITALS: BP 120/65
[2019-03-06] MEDS ORDERED: APIXABAN 5 MG TABLET PO NR (17:00)
[2019-03-06 17:55] VITALS: BP 131/58
[2019-03-06] MEDS: VANCOMYCIN 1 G PREMIX 200 ML IV SCH (19:28)
[2019-03-06 20:00] VITALS: BP 141/94
[2019-03-06] MEDS ORDERED: SODIUM CHLORIDE 10% FOR INH 15ML VIAL NEB INH SCH (20:00)
[2019-03-06] MEDS: ALBUTEROL (0.083%) 2.5MG/3ML NEB HHN SCH (20:57)
[2019-03-06] MEDS: AMIODARONE HCL 200 MG TABLET PO SCH (21:07)
[2019-03-06] MEDS: DILTIAZEM HCL 60MG TABLET PO SCH (21:53)
[2019-03-06 22:00] VITALS: BP 178/103
[2019-03-07] VITALS (13 sets, daily range): BP systolic 114–149; BP diastolic 47–80
[2019-03-07] MEDS: ALBUTEROL (0.083%) 2.5MG/3ML NEB HHN SCH ×6 (01:00→20:17)
[2019-03-07] MEDS: DILTIAZEM HCL 60MG TABLET PO SCH ×3 (06:22→21:24)
[2019-03-07 08:11] LABS: HEMATOCRIT. 22.1 % (36.0-48.0); HEMOGLOBIN. 7.5 g/dL (12.0-16.0); MEAN CORPUSCULAR HEMOGLOBIN 31.5 pg (28.0-32.0); MEAN CORPUSCULAR VOLUME 92.4 fL (81.0-99.0); MEAN PLATELET VOLUME 8.4 fl (7.4-10.4); PLATELET 436 x1000/uL (130-400); RED BLOOD CELL COUNT 2.39 mill/uL (4.2-5.4); RED CELL DISTRIBUTION WIDTH 14.5 % (11.6-14.6)
[2019-03-07 08:18] LABS: CHLORIDE 104 mEq/L (98-107)
[2019-03-07 08:23] LABS: PHOSPHORUS 3.3 mg/dL (2.5-4.9)
[2019-03-07] MEDS: AMIODARONE HCL 200 MG TABLET PO SCH ×2 (08:51→21:23)
[2019-03-07] MEDS: APIXABAN 5 MG TABLET PO SCH ×2 (08:52→16:36)
[2019-03-07 09:54] LABS: PLATELET ESTIMATE INCREASED
[2019-03-07] MEDS ORDERED: PIPERACILLIN/TAZOBACTAM 2.25 G in DEXTROSE 5% WATER 50 ML IV SCH (12:00)
[2019-03-07] MEDS ORDERED: FUROSEMIDE 20MG/2ML VIAL IVP NR (13:00)
[2019-03-07] MEDS ORDERED: FUROSEMIDE 40MG/4ML VIAL IVP NR (13:00)
[2019-03-07] MEDS: PIPERACILLIN/TAZOBACTAM 3.375 G in DEXT 5% WATER 100 ML IV SCH ×2 (13:28→19:58)
[2019-03-07] MEDS: VANCOMYCIN 1 G PREMIX 200 ML IV SCH (18:43)
[2019-03-07] MEDS ORDERED: INFLUENZA VIRUS VACCINE(AFLURIA) 0.5ML SYR IM ONE (19:30)
[2019-03-08] VITALS (12 sets, daily range): BP systolic 106–147; BP diastolic 48–91
[2019-03-08] MEDS: ALBUTEROL (0.083%) 2.5MG/3ML NEB HHN SCH ×6 (01:22→20:47)
[2019-03-08] MEDS: PIPERACILLIN/TAZOBACTAM 3.375 G in DEXT 5% WATER 100 ML IV SCH ×4 (01:55→20:00)
[2019-03-08] MEDS: DILTIAZEM HCL 60MG TABLET PO SCH ×3 (06:16→21:54)
[2019-03-08] MEDS: APIXABAN 5 MG TABLET PO SCH (09:36)
[2019-03-08] MEDS: AMIODARONE HCL 200 MG TABLET PO SCH ×2 (09:36→20:00)
[2019-03-08 10:43] LABS: MEAN CORPUSCULAR HEMOGLOBIN 32.2 pg (28.0-32.0); MEAN PLATELET VOLUME 8.1 fl (7.4-10.4); PLATELET 447 x1000/uL (130-400); RED BLOOD CELL COUNT 2.02 mill/uL (4.2-5.4); RED CELL DISTRIBUTION WIDTH 14.4 % (11.6-14.6)
[2019-03-08 10:46] LABS: HEMOGLOBIN. 6.5 g/dL (12.0-16.0)
[2019-03-08 12:08] LABS: VITAMIN B12 SERUM 1298 pg/mL (211-911)
[2019-03-08 13:24] LABS: FOLIC ACID (FOLATE) SERUM > 20.00 ng/mL (>5.38)
[2019-03-08 14:16] LABS: PLATELET ESTIMATE SLIGHTLY INCREASED
[2019-03-08 15:54] LABS: FERRITIN 193 ng/mL (10-291)
[2019-03-08 17:09] LABS: TOTAL IRON BINDING CAPACITY 166 ug/dL (250-450)
[2019-03-08 17:55] LABS: CHLORIDE 102 mEq/L (98-107)
[2019-03-08 18:01] LABS: PHOSPHORUS 2.7 mg/dL (2.5-4.9)
[2019-03-08] MEDS: VANCOMYCIN 1 G PREMIX 200 ML IV SCH (18:47)
[2019-03-08] MEDS: GUAIFENESIN/CODEINE 200-20MG/10ML UDC PO PRN (20:00)
[2019-03-08] MEDS: ACETAMINOPHEN 325MG TABLET PO PRN (20:00)
[2019-03-08] MEDS ORDERED: DOCUSATE SODIUM 100MG CAPSULE PO SCH (21:00)
[2019-03-08] MEDS ORDERED: SODIUM CHLORIDE 10% FOR INH 15ML VIAL NEB INH SCH (21:00)
[2019-03-08] MEDS ORDERED: BISACODYL 10MG SUPP PR PRN (21:00)
[2019-03-09] VITALS (78 sets, daily range): BP systolic 75–171; BP diastolic 26–75
[2019-03-09] MEDS: ALBUTEROL (0.083%) 2.5MG/3ML NEB HHN SCH ×4 (00:05→13:06)
[2019-03-09] MEDS: PIPERACILLIN/TAZOBACTAM 3.375 G in DEXT 5% WATER 100 ML IV SCH ×4 (02:36→20:04)
[2019-03-09] MEDS ORDERED: EPINEPHRINE 4 MG in DEXT 5% WATER 246 ML IV PRN (03:15)
[2019-03-09] MEDS: DILTIAZEM HCL 60MG TABLET PO SCH ×3 (05:33→21:22)
[2019-03-09] MEDS ORDERED: NOREPINEPHRINE 4 MG in DEXT 5% WATER 246 ML IV PRN (06:00)
[2019-03-09] MEDS ORDERED: BUPIVACAINE/EPINEPH/PF 0.25%/0.0005 10ML ONE (06:38)
[2019-03-09] MEDS ORDERED: SKIN ADHESIVE 0.7 GM EA TOP ONE (06:38)
[2019-03-09] MEDS ORDERED: BACITRACIN 15GM TUBE TOP ONE (06:39)
[2019-03-09] MEDS ORDERED: BACITRACIN 50,000 UNITS/VIAL ONE (06:39)
[2019-03-09] MEDS ORDERED: NORMAL SALINE 0.9% 10 ML SYR ONE (06:39)
[2019-03-09] MEDS ORDERED: PROPOFOL 200MG/20ML VIAL IV ONE (06:45)
[2019-03-09] MEDS ORDERED: MIDAZOLAM HCL 2 MG/2 ML VIAL ONE (06:45)
[2019-03-09] MEDS ORDERED: FENTANYL CITRATE/PF 50MCG/ML 2ML VIAL ONE (06:45)
[2019-03-09] MEDS ORDERED: CEFAZOLIN SODIUM 1000MG/VIAL ONE (06:45)
[2019-03-09] MEDS ORDERED: NEOSTIGMINE METHYLSULFATE 1MG/ML 10 ML VIAL ONE (06:46)
[2019-03-09] MEDS ORDERED: DIPHENHYDRAMINE 50MG/ML VIAL ONE (06:46)
[2019-03-09] MEDS ORDERED: EPHEDRINE SULFATE 50MG/ML VIAL ONE (06:46)
[2019-03-09] MEDS ORDERED: ONDANSETRON HCL 4MG/2ML INJ ONE (06:47)
[2019-03-09] MEDS ORDERED: ETOMIDATE 2MG/ML 10ML VIAL IV ONE (06:47)
[2019-03-09] MEDS ORDERED: LIDOCAINE HCL/PF 1% 10 MG/ML 5ML VIAL ONE (06:47)
[2019-03-09] MEDS ORDERED: ROCURONIUM BROMIDE 10MG/ML VIAL 5ML IV ONE (06:48)
[2019-03-09] MEDS ORDERED: EPINEPHRINE 0.1MG/ML (1:10,000) 10ML SYR ONE (06:52)
[2019-03-09 07:04] LABS: INR 1.5; PARTIAL THROMBOPLASTIN TIME 42.4 sec (23.4-31.0); PROTHROMBIN TIME 15.4 sec (9.6-11.0)
[2019-03-09 07:10] LABS: HEMOGLOBIN. 10.1 g/dL (12.0-16.0); MEAN CORPUSCULAR HEMOGLOBIN 31.4 pg (28.0-32.0); MEAN CORPUSCULAR VOLUME 90.6 fL (81.0-99.0); MEAN PLATELET VOLUME 7.9 fl (7.4-10.4); PLATELET 449 x1000/uL (130-400); RED CELL DISTRIBUTION WIDTH 14.6 % (11.6-14.6)
[2019-03-09 07:34] LABS: CHLORIDE 103 mEq/L (98-107)
[2019-03-09] MEDS ORDERED: TETRACAINE/BENZOCAINE/BUTAMBEN 20 GM SPRAY MM ONE (07:34)
[2019-03-09] MEDS ORDERED: SODIUM CHLORIDE 0.9% 500 ML IV PRN (09:11)
[2019-03-09] MEDS ORDERED: ONDANSETRON HCL 4MG/2ML INJ IV PRN (09:15)
[2019-03-09] MEDS ORDERED: OXYCODONE HCL/ACETAMINOPHEN 5/325MG TABLET PO PRN (09:15)
[2019-03-09] MEDS ORDERED: MAGNESIUM 1 G PREMIX 100 ML IV PRN (09:15)
[2019-03-09] MEDS ORDERED: MAGNESIUM SULFATE 3 GM in DEXT 5% WATER 100 ML IV PRN (09:15)
[2019-03-09] MEDS ORDERED: MAGNESIUM 2 G PREMIX 50 ML IV PRN (09:15)
[2019-03-09] MEDS ORDERED: MORPHINE SULFATE 2 MG/ML CPJ (NOT FOR IM USE) IV PRN (09:15)
[2019-03-09] MEDS ORDERED: CEFAZOLIN 1000MG PREMIX 50 ML IV SCH (09:15)
[2019-03-09] MEDS ORDERED: ACETAMINOPHEN 325MG TABLET PO PRN (09:15)
[2019-03-09 10:08] LABS: BG BASE EXCESS -1.4 mmol/L (-2.0-2.0); BG CARBOXYHEMOGLOBIN 0.3 % (0.5-1.5); BG DEOXYHEMOGLOBIN 1.8 % (0.0-5.0); BG FRACTION INSPIRED OXYGEN 64; BG HCO3 ACT 27.4 mmol/L (22.0-26.0); BG METHEMOGLOBIN 0.1 % (0.0-1.5); BG OXYGEN SATURATION 98.2 % (92.0-98.5); BG OXYHEMOGLOBIN 97.8 % (94.0-97.0); BG PCO2 69.6 mmHg (35.0-45.0); BG PH 7.213 (7.350-7.450); BG PO2 151.9 mmHg (75.0-100.0); BG SAMPLE SITE A-LINE; BG TOTAL HEMOGLOBIN 10.7 g/dL (12.0-18.0); BG VENT MODE MASK - SIMPLE
[2019-03-09] MEDS: AMIODARONE HCL 200 MG TABLET PO SCH ×2 (10:30→21:37)
[2019-03-09] MEDS ORDERED: KCL 10MEQ/50ML PREMIX 100 ML IV PRN (10:30)
[2019-03-09] MEDS ORDERED: KCL 10MEQ/50ML PREMIX 200 ML IV PRN (10:30)
[2019-03-09] MEDS: MAGNESIUM HYDROXIDE 400MG/5ML 30ML UDC PO SCH ×4 (10:30→21:37)
[2019-03-09] MEDS ORDERED: KCL 10MEQ/50ML PREMIX 150 ML IV PRN (10:30)
[2019-03-09] MEDS: DOCUSATE SODIUM 100MG CAPSULE PO SCH ×2 (10:30→17:00)
[2019-03-09] MEDS: DEXT 5%/0.45% NACL 1000ML 1,000 ML IV SCH (11:33)
[2019-03-09 12:29] LABS: BG BASE EXCESS -1.2 mmol/L (-2.0-2.0); BG BILEVEL POS AIRWAY PRESSURE 15/5; BG CARBOXYHEMOGLOBIN 0.3 % (0.5-1.5); BG DEOXYHEMOGLOBIN 1.7 % (0.0-5.0); BG FRACTION INSPIRED OXYGEN 40; BG HCO3 ACT 23.9 mmol/L (22.0-26.0); BG METHEMOGLOBIN 0.9 % (0.0-1.5); BG OXYGEN SATURATION 98.3 % (92.0-98.5); BG OXYHEMOGLOBIN 97.1 % (94.0-97.0); BG PCO2 41.6 mmHg (35.0-45.0); BG PH 7.377 (7.350-7.450); BG PO2 146.6 mmHg (75.0-100.0); BG SAMPLE SITE A-LINE; BG TOTAL HEMOGLOBIN 10.3 g/dL (12.0-18.0); BG VENT MODE MASK - BIPAP
[2019-03-09] MEDS: IPRATROPIUM/ALBUTEROL 0.5-3(2.5)MG/3ML NEB HHN SCH ×2 (15:40→20:09)
[2019-03-09 15:53] LABS: PLATELET ESTIMATE SLIGHTLY INCREASED
[2019-03-09 18:48] LABS: BG BASE EXCESS 0.9 mmol/L (-2.0-2.0); BG CARBOXYHEMOGLOBIN 0.3 % (0.5-1.5); BG DEOXYHEMOGLOBIN 1.7 % (0.0-5.0); BG FRACTION INSPIRED OXYGEN 36; BG HCO3 ACT 25.5 mmol/L (22.0-26.0); BG METHEMOGLOBIN 0.2 % (0.0-1.5); BG OXYGEN SATURATION 98.3 % (92.0-98.5); BG OXYHEMOGLOBIN 97.8 % (94.0-97.0); BG PCO2 40.8 mmHg (35.0-45.0); BG PH 7.414 (7.350-7.450); BG PO2 131.8 mmHg (75.0-100.0); BG SAMPLE SITE A-LINE; BG TOTAL HEMOGLOBIN 10.4 g/dL (12.0-18.0); BG VENT MODE NASAL CANNULA
[2019-03-09] MEDS: ACETAMINOPHEN 325MG TABLET PO PRN (20:13)
[2019-03-09] MEDS: VANCOMYCIN 1 G PREMIX 200 ML IV SCH (21:37)
[2019-03-10] VITALS (94 sets, daily range): BP systolic 0–167; BP diastolic -1–82
[2019-03-10] MEDS: IPRATROPIUM/ALBUTEROL 0.5-3(2.5)MG/3ML NEB HHN SCH ×4 (01:30→20:43)
[2019-03-10] MEDS: PIPERACILLIN/TAZOBACTAM 3.375 G in DEXT 5% WATER 100 ML IV SCH ×4 (02:10→19:36)
[2019-03-10] MEDS: MAGNESIUM HYDROXIDE 400MG/5ML 30ML UDC PO SCH ×3 (02:10→09:58)
[2019-03-10 05:14] LABS: HEMATOCRIT. 29.4 % (36.0-48.0); MEAN CORPUSCULAR HEMOGLOBIN 31.3 pg (28.0-32.0); MEAN CORPUSCULAR VOLUME 91.8 fL (81.0-99.0); MEAN PLATELET VOLUME 7.7 fl (7.4-10.4); PLATELET 503 x1000/uL (130-400)
[2019-03-10 05:19] LABS: CHLORIDE 104 mEq/L (98-107)
[2019-03-10] MEDS ORDERED: MAGNESIUM 2 G PREMIX 50 ML IV ONE (05:45)
[2019-03-10] MEDS: DEXT 5%/0.45% NACL 1000ML 1,000 ML IV SCH (06:18)
[2019-03-10] MEDS: DILTIAZEM HCL 60MG TABLET PO SCH ×3 (06:18→21:03)
[2019-03-10] MEDS: ACETAMINOPHEN 325MG TABLET PO PRN (06:20)
[2019-03-10] MEDS ORDERED: MAGNESIUM SULFATE 3 GM in DEXT 5% WATER 100 ML IV PRN (06:30)
[2019-03-10 07:56] LABS: PLATELET ESTIMATE INCREASED
[2019-03-10] MEDS: DOCUSATE SODIUM 100MG CAPSULE PO SCH ×2 (08:43→18:05)
[2019-03-10] MEDS: AMIODARONE HCL 200 MG TABLET PO SCH ×2 (08:43→20:32)
[2019-03-10] MEDS: FAMOTIDINE 20MG TABLET PO SCH ×2 (08:43→20:37)
[2019-03-10] MEDS ORDERED: FAMOTIDINE 20MG/2ML VIAL IV SCH (09:00)
[2019-03-10] MEDS ORDERED: LIDOCAINE HCL 1% 20ML VIAL (Pyxis) INJ ONE (14:00)
[2019-03-10] MEDS ORDERED: SODIUM BICARBONATE 4% (2.4MEQ) 5ML VIAL IV ONE (14:00)
[2019-03-10] MEDS ORDERED: SODIUM PHOS,M-BASIC-D-BASIC 20 MM in DEXT 5% WATER 243.3333 ML IV NR (17:30)
[2019-03-10] MEDS: VANCOMYCIN 1 G PREMIX 200 ML IV SCH (21:52)
[2019-03-11] VITALS (26 sets, daily range): BP systolic 97–136; BP diastolic 41–69
[2019-03-11] MEDS: DEXT 5%/0.45% NACL 1000ML 1,000 ML IV SCH (01:11)
[2019-03-11] MEDS: PIPERACILLIN/TAZOBACTAM 3.375 G in DEXT 5% WATER 100 ML IV SCH ×4 (01:11→20:16)
[2019-03-11] MEDS: IPRATROPIUM/ALBUTEROL 0.5-3(2.5)MG/3ML NEB HHN SCH ×4 (02:14→20:23)
[2019-03-11] MEDS: DILTIAZEM HCL 60MG TABLET PO SCH ×2 (06:49→17:40)
[2019-03-11 07:57] LABS: CHLORIDE 104 mEq/L (98-107)
[2019-03-11 08:01] LABS: HEMATOCRIT. 28.4 % (36.0-48.0); HEMOGLOBIN. 9.6 g/dL (12.0-16.0); MEAN CORPUSCULAR HEMOGLOBIN 31.1 pg (28.0-32.0); MEAN CORPUSCULAR VOLUME 91.8 fL (81.0-99.0); MEAN PLATELET VOLUME 7.6 fl (7.4-10.4); PLATELET 484 x1000/uL (130-400); RED CELL DISTRIBUTION WIDTH 15.3 % (11.6-14.6)
[2019-03-11 08:03] LABS: PHOSPHORUS 2.4 mg/dL (2.5-4.9)
[2019-03-11] MEDS: FAMOTIDINE 20MG TABLET PO SCH ×2 (08:41→21:28)
[2019-03-11] MEDS: DOCUSATE SODIUM 100MG CAPSULE PO SCH (08:41)
[2019-03-11 09:15] LABS: PLATELET ESTIMATE INCREASED
[2019-03-11] MEDS: AMIODARONE HCL 200 MG TABLET PO SCH (10:40)
[2019-03-11] MEDS: LACTOBACILLUS GG CAPSULE PO SCH (17:39)
[2019-03-11] MEDS ORDERED: DOCUSATE SODIUM SUGAR FREE 100MG/10ML UDC NG SCH (21:00)
[2019-03-11] MEDS: VANCOMYCIN 1 G PREMIX 200 ML IV SCH (21:28)
[2019-03-12] VITALS (28 sets, daily range): BP systolic 93–157; BP diastolic 27–86
[2019-03-12] MEDS: PIPERACILLIN/TAZOBACTAM 3.375 G in DEXT 5% WATER 100 ML IV SCH ×4 (02:13→20:49)
[2019-03-12] MEDS: IPRATROPIUM/ALBUTEROL 0.5-3(2.5)MG/3ML NEB HHN SCH ×4 (02:15→20:39)
[2019-03-12 05:29] LABS: HEMATOCRIT. 26.9 % (36.0-48.0); HEMOGLOBIN. 9.1 g/dL (12.0-16.0); MEAN CORPUSCULAR HEMOGLOBIN 31.4 pg (28.0-32.0); MEAN CORPUSCULAR VOLUME 92.4 fL (81.0-99.0); MEAN PLATELET VOLUME 7.6 fl (7.4-10.4); PLATELET 437 x1000/uL (130-400); RED BLOOD CELL COUNT 2.91 mill/uL (4.2-5.4); RED CELL DISTRIBUTION WIDTH 15.4 % (11.6-14.6)
[2019-03-12 05:39] LABS: CHLORIDE 105 mEq/L (98-107)
[2019-03-12 07:07] LABS: PLATELET ESTIMATE SLIGHTLY INCREASED
[2019-03-12] MEDS: DILTIAZEM HCL 60MG TABLET PO SCH ×2 (08:13→20:48)
[2019-03-12] MEDS: LACTOBACILLUS GG CAPSULE PO SCH ×2 (08:14→16:13)
[2019-03-12] MEDS: AMIODARONE HCL 200 MG TABLET PO SCH (08:14)
[2019-03-12] MEDS: FAMOTIDINE 20MG TABLET PO SCH (08:15)
[2019-03-12] MEDS: FUROSEMIDE 40MG/4ML VIAL IVP NR ×2 (13:38→13:53)
[2019-03-12] MEDS ORDERED: POTASSIUM PHOS,M-BASIC-D-BASIC 20 MMOL in DEXT 5% WATER 243.3333 ML IV NR (15:00)
[2019-03-12] MEDS: GUAIFENESIN/CODEINE 200-20MG/10ML UDC PO PRN (17:15)
[2019-03-12] MEDS: VANCOMYCIN 1 G PREMIX 200 ML IV SCH (21:34)
[2019-03-13] VITALS (38 sets, daily range): BP systolic 103–152; BP diastolic 47–88
[2019-03-13] MEDS: IPRATROPIUM/ALBUTEROL 0.5-3(2.5)MG/3ML NEB HHN SCH ×4 (01:35→20:38)
[2019-03-13] MEDS: PIPERACILLIN/TAZOBACTAM 3.375 G in DEXT 5% WATER 100 ML IV SCH ×4 (02:18→19:52)
[2019-03-13 05:24] LABS: HEMATOCRIT. 27.4 % (36.0-48.0); HEMOGLOBIN. 9.4 g/dL (12.0-16.0); MEAN CORPUSCULAR HEMOGLOBIN 31.7 pg (28.0-32.0); MEAN PLATELET VOLUME 7.4 fl (7.4-10.4); PLATELET 391 x1000/uL (130-400); RED BLOOD CELL COUNT 2.98 mill/uL (4.2-5.4); RED CELL DISTRIBUTION WIDTH 14.9 % (11.6-14.6)
[2019-03-13 05:27] LABS: CHLORIDE 101 mEq/L (98-107)
[2019-03-13 05:35] LABS: PHOSPHORUS 2.7 mg/dL (2.5-4.9)
[2019-03-13] MEDS: FAMOTIDINE 20MG TABLET PO SCH (07:56)
[2019-03-13] MEDS: LACTOBACILLUS GG CAPSULE PO SCH ×2 (07:57→17:23)
[2019-03-13] MEDS: AMIODARONE HCL 200 MG TABLET PO SCH (07:57)
[2019-03-13] MEDS: DILTIAZEM HCL 60MG TABLET PO SCH ×2 (07:58→21:43)
[2019-03-13 08:14] LABS: PLATELET ESTIMATE NORMAL
[2019-03-13] MEDS ORDERED: FUROSEMIDE 20MG/2ML VIAL IVP NR (10:30)
[2019-03-13] MEDS: GUAIFENESIN/CODEINE 200-20MG/10ML UDC PO PRN (12:40)
[2019-03-13] MEDS: ZINC SULFATE 220 MG ( 50 ) CAPSULE PO SCH (12:41)
[2019-03-13] MEDS: ASCORBIC ACID 500 MG TABLET PO SCH (12:41)
[2019-03-13] MEDS: VANCOMYCIN 1 G PREMIX 200 ML IV SCH (21:43)
[2019-03-14] VITALS (34 sets, daily range): BP systolic 99–160; BP diastolic 44–87
[2019-03-14] MEDS: IPRATROPIUM/ALBUTEROL 0.5-3(2.5)MG/3ML NEB HHN SCH ×4 (01:31→20:50)
[2019-03-14] MEDS: PIPERACILLIN/TAZOBACTAM 3.375 G in DEXT 5% WATER 100 ML IV SCH ×4 (02:31→20:06)
[2019-03-14 05:25] LABS: BASOPHILS % 0.4 % (0.0-2.0); EOSINOPHILS % 2.4 % (0.0-5.0); HEMATOCRIT. 29.4 % (36.0-48.0); HEMOGLOBIN. 10.1 g/dL (12.0-16.0); LYMPHOCYTES % 9.9 % (20.0-50.0); MEAN CORPUSCULAR HEMOGLOBIN 31.8 pg (28.0-32.0); MEAN CORPUSCULAR VOLUME 92.4 fL (81.0-99.0); MEAN PLATELET VOLUME 7.2 fl (7.4-10.4); MONOCYTES % 12.2 % (2.0-8.0); NEUTROPHILS % 75.1 % (40.0-76.0); PLATELET 437 x1000/uL (130-400); RED BLOOD CELL COUNT 3.19 mill/uL (4.2-5.4); RED CELL DISTRIBUTION WIDTH 14.6 % (11.6-14.6)
[2019-03-14 05:30] LABS: CHLORIDE 103 mEq/L (98-107)
[2019-03-14] MEDS: DILTIAZEM HCL 60MG TABLET PO SCH ×2 (08:28→21:00)
[2019-03-14] MEDS: LACTOBACILLUS GG CAPSULE PO SCH ×2 (08:28→17:52)
[2019-03-14] MEDS: FAMOTIDINE 20MG TABLET PO SCH (08:29)
[2019-03-14] MEDS: AMIODARONE HCL 200 MG TABLET PO SCH (08:29)
[2019-03-14] MEDS: ZINC SULFATE 220 MG ( 50 ) CAPSULE PO SCH (08:29)
[2019-03-14] MEDS: ASCORBIC ACID 500 MG TABLET PO SCH (08:30)
[2019-03-14] MEDS ORDERED: FUROSEMIDE 20MG/2ML VIAL IVP SCH (10:30)
[2019-03-14] MEDS ORDERED: ONDANSETRON HCL 4MG/2ML INJ IV PRN (14:00)
[2019-03-14] MEDS ORDERED: DEXT 5%/0.9% NACL 1,000 ML IV SCH (23:30)
[2019-03-14 23:47] LABS: BG BASE EXCESS 5.9 mmol/L (-2.0-2.0); BG CARBOXYHEMOGLOBIN 0.3 % (0.5-1.5); BG DEOXYHEMOGLOBIN 1.2 % (0.0-5.0); BG FRACTION INSPIRED OXYGEN 32; BG HCO3 ACT 30.3 mmol/L (22.0-26.0); BG METHEMOGLOBIN 0.2 % (0.0-1.5); BG OXYGEN SATURATION 98.8 % (92.0-98.5); BG OXYHEMOGLOBIN 98.3 % (94.0-97.0); BG PCO2 43.6 mmHg (35.0-45.0); BG PO2 155.7 mmHg (75.0-100.0); BG SAMPLE SITE RIGHT RADIAL; BG TOTAL HEMOGLOBIN 9.8 g/dL (12.0-18.0); BG VENT MODE NASAL CANNULA
[2019-03-15] VITALS (11 sets, daily range): BP systolic 103–142; BP diastolic 45–85
[2019-03-15] MEDS: VANCOMYCIN 1 G PREMIX 200 ML IV SCH ×2 (00:07→22:48)
[2019-03-15] MEDS: IPRATROPIUM/ALBUTEROL 0.5-3(2.5)MG/3ML NEB HHN SCH ×4 (02:14→21:13)
[2019-03-15] MEDS: PIPERACILLIN/TAZOBACTAM 3.375 G in DEXT 5% WATER 100 ML IV SCH ×4 (02:21→20:12)
[2019-03-15 03:57] LABS: BASOPHILS % 0.4 % (0.0-2.0); EOSINOPHILS % 2.6 % (0.0-5.0); HEMATOCRIT. 25.2 % (36.0-48.0); HEMOGLOBIN. 8.6 g/dL (12.0-16.0); LYMPHOCYTES % 12.4 % (20.0-50.0); MEAN CORPUSCULAR HEMOGLOBIN 31.5 pg (28.0-32.0); MEAN CORPUSCULAR VOLUME 91.9 fL (81.0-99.0); MEAN PLATELET VOLUME 7.3 fl (7.4-10.4); MONOCYTES % 11.5 % (2.0-8.0); NEUTROPHILS % 73.1 % (40.0-76.0); PLATELET 384 x1000/uL (130-400); RED BLOOD CELL COUNT 2.74 mill/uL (4.2-5.4); RED CELL DISTRIBUTION WIDTH 14.4 % (11.6-14.6)
[2019-03-15] MEDS ORDERED: KCL 20MEQ/100ML PREMIX 100 ML IV NR (05:00)
[2019-03-15] MEDS: FAMOTIDINE 20MG TABLET PO SCH (08:24)
[2019-03-15] MEDS: LACTOBACILLUS GG CAPSULE PO SCH ×2 (08:25→16:47)
[2019-03-15] MEDS: ASCORBIC ACID 500 MG TABLET PO SCH (08:25)
[2019-03-15] MEDS: DILTIAZEM HCL 60MG TABLET PO SCH (08:25)
[2019-03-15] MEDS: ZINC SULFATE 220 MG ( 50 ) CAPSULE PO SCH (08:25)
[2019-03-15] MEDS: AMIODARONE HCL 200 MG TABLET PO SCH (08:26)
[2019-03-15] MEDS: POTASSIUM CHLORIDE 20MEQ TABLET SR PO SCH ×2 (11:12→16:47)
[2019-03-15] MEDS ORDERED: DOPAMINE 400MG/250ML PREMIX 250 ML IV SCH (14:00)
[2019-03-15] MEDS ORDERED: DOPAMINE 400MG/250ML PREMIX 250 ML IV PRN (15:15)
[2019-03-15] MEDS ORDERED: BENZONATATE 100MG CAPSULE PO NR (19:30)
[2019-03-15] MEDS: NYSTATIN POWDER 15GM TOP SCH (21:59)
[2019-03-15] MEDS: BENZONATATE 100MG CAPSULE PO SCH (23:09)
[2019-03-16] VITALS (13 sets, daily range): BP systolic 113–164; BP diastolic 60–95
[2019-03-16] MEDS: IPRATROPIUM/ALBUTEROL 0.5-3(2.5)MG/3ML NEB HHN SCH ×6 (00:46→20:39)
[2019-03-16] MEDS: PIPERACILLIN/TAZOBACTAM 3.375 G in DEXT 5% WATER 100 ML IV SCH ×4 (02:13→20:12)
[2019-03-16] MEDS: BENZONATATE 100MG CAPSULE PO SCH ×3 (05:56→21:55)
[2019-03-16 07:03] LABS: CHLORIDE 109 mEq/L (98-107)
[2019-03-16 07:09] LABS: PHOSPHORUS 1.8 mg/dL (2.5-4.9)
[2019-03-16] MEDS: NYSTATIN POWDER 15GM TOP SCH ×2 (09:00→20:13)
[2019-03-16] MEDS: LACTOBACILLUS GG CAPSULE PO SCH ×2 (10:01→18:28)
[2019-03-16] MEDS: ASCORBIC ACID 500 MG TABLET PO SCH (10:01)
[2019-03-16] MEDS: FAMOTIDINE 20MG TABLET PO SCH (10:01)
[2019-03-16] MEDS: ZINC SULFATE 220 MG ( 50 ) CAPSULE PO SCH (10:01)
[2019-03-16 10:08] LABS: BASOPHILS % 0.5 % (0.0-2.0); EOSINOPHILS % 2.7 % (0.0-5.0); HEMATOCRIT. 30.2 % (36.0-48.0); HEMOGLOBIN. 10.2 g/dL (12.0-16.0); LYMPHOCYTES % 11.9 % (20.0-50.0); MEAN CORPUSCULAR HEMOGLOBIN 31.4 pg (28.0-32.0); MEAN CORPUSCULAR VOLUME 93.3 fL (81.0-99.0); MEAN PLATELET VOLUME 7.3 fl (7.4-10.4); MONOCYTES % 13.6 % (2.0-8.0); NEUTROPHILS % 71.3 % (40.0-76.0); PLATELET 376 x1000/uL (130-400); RED BLOOD CELL COUNT 3.24 mill/uL (4.2-5.4); RED CELL DISTRIBUTION WIDTH 14.9 % (11.6-14.6)
[2019-03-16] MEDS: VANCOMYCIN 1 G PREMIX 200 ML IV SCH (21:55)
[2019-03-17] VITALS (13 sets, daily range): BP systolic 83–154; BP diastolic 42–91
[2019-03-17] MEDS: IPRATROPIUM/ALBUTEROL 0.5-3(2.5)MG/3ML NEB HHN SCH ×6 (00:21→20:27)
[2019-03-17] MEDS: PIPERACILLIN/TAZOBACTAM 3.375 G in DEXT 5% WATER 100 ML IV SCH ×4 (02:03→22:00)
[2019-03-17] MEDS ORDERED: DILTIAZEM HCL 5MG/ML 5ML VIAL IV SCH (03:37)
[2019-03-17] MEDS ORDERED: DILTIAZEM HCL 125 MG in DEXT 5% WATER 100 ML IV SCH (04:00)
[2019-03-17] MEDS: BENZONATATE 100MG CAPSULE PO SCH ×3 (06:23→22:12)
[2019-03-17] MEDS: NYSTATIN POWDER 15GM TOP SCH ×2 (09:00→22:00)
[2019-03-17] MEDS: FAMOTIDINE 20MG TABLET PO SCH (10:36)
[2019-03-17] MEDS: LACTOBACILLUS GG CAPSULE PO SCH ×2 (10:36→17:00)
[2019-03-17] MEDS: ASCORBIC ACID 500 MG TABLET PO SCH (10:36)
[2019-03-17] MEDS: ZINC SULFATE 220 MG ( 50 ) CAPSULE PO SCH (10:36)
[2019-03-17] MEDS: GUAIFENESIN/CODEINE 200-20MG/10ML UDC PO PRN (10:47)
[2019-03-17 10:51] LABS: BASOPHILS % 0.8 % (0.0-2.0); HEMATOCRIT. 32.1 % (36.0-48.0); HEMOGLOBIN. 10.8 g/dL (12.0-16.0); LYMPHOCYTES % 11.9 % (20.0-50.0); MEAN CORPUSCULAR HEMOGLOBIN 30.8 pg (28.0-32.0); MEAN CORPUSCULAR VOLUME 91.6 fL (81.0-99.0); MEAN PLATELET VOLUME 7.1 fl (7.4-10.4); MONOCYTES % 12.8 % (2.0-8.0); NEUTROPHILS % 71.5 % (40.0-76.0); PLATELET 406 x1000/uL (130-400); RED BLOOD CELL COUNT 3.51 mill/uL (4.2-5.4); RED CELL DISTRIBUTION WIDTH 14.8 % (11.6-14.6)
[2019-03-17] MEDS ORDERED: SODIUM PHOS,M-BASIC-D-BASIC 20 MM in DEXT 5% WATER 243.3333 ML IV NR (11:00)
[2019-03-17 11:54] LABS: CHLORIDE 103 mEq/L (98-107)
[2019-03-18] VITALS (12 sets, daily range): BP systolic 115–159; BP diastolic 60–80
[2019-03-18] MEDS: IPRATROPIUM/ALBUTEROL 0.5-3(2.5)MG/3ML NEB HHN SCH ×6 (00:51→20:15)
[2019-03-18] MEDS: BENZONATATE 100MG CAPSULE PO SCH ×3 (05:57→22:46)
[2019-03-18 06:46] LABS: BASOPHILS % 0.6 % (0.0-2.0); EOSINOPHILS % 3.7 % (0.0-5.0); HEMATOCRIT. 29.1 % (36.0-48.0); HEMOGLOBIN. 9.8 g/dL (12.0-16.0); LYMPHOCYTES % 14.2 % (20.0-50.0); MEAN CORPUSCULAR VOLUME 92.4 fL (81.0-99.0); MEAN PLATELET VOLUME 7.6 fl (7.4-10.4); MONOCYTES % 13.6 % (2.0-8.0); NEUTROPHILS % 67.9 % (40.0-76.0); PLATELET 348 x1000/uL (130-400); RED BLOOD CELL COUNT 3.15 mill/uL (4.2-5.4); RED CELL DISTRIBUTION WIDTH 14.8 % (11.6-14.6)
[2019-03-18 06:54] LABS: CHLORIDE 103 mEq/L (98-107)
[2019-03-18 07:07] LABS: PHOSPHORUS 3.2 mg/dL (2.5-4.9)
[2019-03-18] MEDS: LACTOBACILLUS GG CAPSULE PO SCH ×2 (08:49→16:43)
[2019-03-18] MEDS: ZINC SULFATE 220 MG ( 50 ) CAPSULE PO SCH (08:49)
[2019-03-18] MEDS: ASCORBIC ACID 500 MG TABLET PO SCH (08:50)
[2019-03-18] MEDS: FAMOTIDINE 20MG TABLET PO SCH (08:50)
[2019-03-18] MEDS: NYSTATIN POWDER 15GM TOP SCH ×2 (08:50→22:47)
[2019-03-18] MEDS ORDERED: DILTIAZEM HCL 125 MG in DEXT 5% WATER 100 ML IV PRN ×2 (13:45→17:00)
[2019-03-18] MEDS ORDERED: DILTIAZEM HCL 5MG/ML 5ML VIAL IV SCH (15:15)
[2019-03-18] MEDS ORDERED: ENOXAPARIN 60MG/0.6ML SYR SUBCUT NR (15:15)
[2019-03-18] MEDS: AMIODARONE HCL 200 MG TABLET PO SCH (16:43)
[2019-03-18] MEDS: GUAIFENESIN/CODEINE 200-20MG/10ML UDC PO PRN (18:34)
[2019-03-18] MEDS ORDERED: DIGOXIN 500MCG/2ML AMP IV SCH (19:15)
[2019-03-18] MEDS ORDERED: SODIUM CHLORIDE 0.9% 250 ML IV SCH (19:15)
[2019-03-18] MEDS ORDERED: DIGOXIN 500MCG/2ML AMP IV NR (22:40)
[2019-03-18] MEDS: ACETAMINOPHEN 325MG TABLET PO PRN (23:45)
[2019-03-19] VITALS (12 sets, daily range): BP systolic 114–158; BP diastolic 51–101
[2019-03-19] MEDS: IPRATROPIUM/ALBUTEROL 0.5-3(2.5)MG/3ML NEB HHN SCH ×5 (00:20→20:56)
[2019-03-19] MEDS: BENZONATATE 100MG CAPSULE PO SCH ×3 (06:06→22:23)
[2019-03-19] MEDS: LACTOBACILLUS GG CAPSULE PO SCH ×2 (09:21→17:05)
[2019-03-19] MEDS: FAMOTIDINE 20MG TABLET PO SCH (09:21)
[2019-03-19] MEDS: ZINC SULFATE 220 MG ( 50 ) CAPSULE PO SCH (09:21)
[2019-03-19] MEDS: ASCORBIC ACID 500 MG TABLET PO SCH (09:21)
[2019-03-19] MEDS: AMIODARONE HCL 200 MG TABLET PO SCH ×2 (09:21→17:05)
[2019-03-19] MEDS: NYSTATIN POWDER 15GM TOP SCH ×2 (09:26→21:13)
[2019-03-20] VITALS (13 sets, daily range): BP systolic 121–172; BP diastolic 55–76
[2019-03-20] MEDS: IPRATROPIUM/ALBUTEROL 0.5-3(2.5)MG/3ML NEB HHN SCH ×6 (00:53→21:16)
[2019-03-20] MEDS: ACETAMINOPHEN 325MG TABLET PO PRN (01:26)
[2019-03-20] MEDS: BENZONATATE 100MG CAPSULE PO SCH ×3 (06:12→21:36)
[2019-03-20 06:47] LABS: BASOPHILS % 0.6 % (0.0-2.0); EOSINOPHILS % 4.5 % (0.0-5.0); HEMOGLOBIN. 9.6 g/dL (12.0-16.0); LYMPHOCYTES % 21.8 % (20.0-50.0); MEAN CORPUSCULAR HEMOGLOBIN 31.4 pg (28.0-32.0); MEAN CORPUSCULAR VOLUME 91.9 fL (81.0-99.0); MEAN PLATELET VOLUME 7.8 fl (7.4-10.4); MONOCYTES % 11.2 % (2.0-8.0); NEUTROPHILS % 61.9 % (40.0-76.0); PLATELET 315 x1000/uL (130-400); RED BLOOD CELL COUNT 3.05 mill/uL (4.2-5.4); RED CELL DISTRIBUTION WIDTH 14.5 % (11.6-14.6)
[2019-03-20 07:23] LABS: CHLORIDE 103 mEq/L (98-107)
[2019-03-20 07:29] LABS: PHOSPHORUS 2.6 mg/dL (2.5-4.9)
[2019-03-20] MEDS: LACTOBACILLUS GG CAPSULE PO SCH ×2 (08:38→17:24)
[2019-03-20] MEDS: ZINC SULFATE 220 MG ( 50 ) CAPSULE PO SCH (08:38)
[2019-03-20] MEDS: NYSTATIN POWDER 15GM TOP SCH ×2 (08:38→20:05)
[2019-03-20] MEDS: AMIODARONE HCL 200 MG TABLET PO SCH ×2 (08:39→17:24)
[2019-03-20] MEDS: FAMOTIDINE 20MG TABLET PO SCH (08:40)
[2019-03-20] MEDS: ASCORBIC ACID 500 MG TABLET PO SCH (08:40)
[2019-03-20] MEDS ORDERED: FUROSEMIDE 40MG/4ML VIAL IVP SCH (10:45)
[2019-03-20] MEDS: AMLODIPINE 2.5MG TABLET PO SCH ×2 (11:34→21:36)
[2019-03-20] MEDS: MEGESTROL ACETATE 400 MG/10 ML UDC PO SCH (19:40)
[2019-03-20] MEDS: CYPROHEPTADINE HCL 4 MG TABLET PO SCH (21:36)
[2019-03-21] VITALS (11 sets, daily range): BP systolic 115–153; BP diastolic 50–75
[2019-03-21] MEDS: IPRATROPIUM/ALBUTEROL 0.5-3(2.5)MG/3ML NEB HHN SCH ×6 (00:39→21:21)
[2019-03-21] MEDS: BENZONATATE 100MG CAPSULE PO SCH ×3 (06:12→20:51)
[2019-03-21] MEDS: CYPROHEPTADINE HCL 4 MG TABLET PO SCH ×3 (06:12→20:52)
[2019-03-21 07:43] LABS: BASOPHILS % 0.6 % (0.0-2.0); EOSINOPHILS % 4.4 % (0.0-5.0); HEMOGLOBIN. 9.9 g/dL (12.0-16.0); LYMPHOCYTES % 13.8 % (20.0-50.0); MEAN CORPUSCULAR HEMOGLOBIN 31.1 pg (28.0-32.0); MEAN CORPUSCULAR VOLUME 91.2 fL (81.0-99.0); MEAN PLATELET VOLUME 7.8 fl (7.4-10.4); MONOCYTES % 10.8 % (2.0-8.0); NEUTROPHILS % 70.4 % (40.0-76.0); PLATELET 320 x1000/uL (130-400); RED BLOOD CELL COUNT 3.18 mill/uL (4.2-5.4); RED CELL DISTRIBUTION WIDTH 14.4 % (11.6-14.6)
[2019-03-21 07:59] LABS: CHLORIDE 101 mEq/L (98-107)
[2019-03-21] MEDS: AMIODARONE HCL 200 MG TABLET PO SCH ×2 (08:53→16:58)
[2019-03-21] MEDS: ZINC SULFATE 220 MG ( 50 ) CAPSULE PO SCH (08:53)
[2019-03-21] MEDS: MEGESTROL ACETATE 400 MG/10 ML UDC PO SCH (08:53)
[2019-03-21] MEDS: FAMOTIDINE 20MG TABLET PO SCH (08:53)
[2019-03-21] MEDS: LACTOBACILLUS GG CAPSULE PO SCH ×2 (08:53→16:58)
[2019-03-21] MEDS: ASCORBIC ACID 500 MG TABLET PO SCH (08:54)
[2019-03-21] MEDS: NYSTATIN POWDER 15GM TOP SCH (08:55)
[2019-03-21] MEDS ORDERED: FUROSEMIDE 20MG/2ML VIAL IVP NR (11:00)
[2019-03-21] MEDS: AMLODIPINE 2.5MG TABLET PO SCH ×2 (11:36→20:51)
[2019-03-22] VITALS (12 sets, daily range): BP systolic 106–157; BP diastolic 51–131
[2019-03-22] MEDS: IPRATROPIUM/ALBUTEROL 0.5-3(2.5)MG/3ML NEB HHN SCH ×6 (00:08→20:49)
[2019-03-22 00:14] LABS: BG BASE EXCESS 7.4 mmol/L (-2.0-2.0); BG CARBOXYHEMOGLOBIN 0.3 % (0.5-1.5); BG DEOXYHEMOGLOBIN 1.1 % (0.0-5.0); BG FRACTION INSPIRED OXYGEN 36; BG HCO3 ACT 32.6 mmol/L (22.0-26.0); BG METHEMOGLOBIN 0.2 % (0.0-1.5); BG OXYGEN SATURATION 98.9 % (92.0-98.5); BG OXYHEMOGLOBIN 98.4 % (94.0-97.0); BG PCO2 49.5 mmHg (35.0-45.0); BG PH 7.437 (7.350-7.450); BG PO2 154.4 mmHg (75.0-100.0); BG SAMPLE SITE RIGHT RADIAL; BG TOTAL HEMOGLOBIN 10.7 g/dL (12.0-18.0); BG VENT MODE NASAL CANNULA
[2019-03-22] MEDS: BENZONATATE 100MG CAPSULE PO SCH ×3 (05:53→22:19)
[2019-03-22] MEDS: CYPROHEPTADINE HCL 4 MG TABLET PO SCH ×3 (05:53→22:19)
[2019-03-22 07:31] LABS: BASOPHILS % 0.6 % (0.0-2.0); EOSINOPHILS % 3.1 % (0.0-5.0); HEMATOCRIT. 29.2 % (36.0-48.0); LYMPHOCYTES % 14.5 % (20.0-50.0); MEAN CORPUSCULAR HEMOGLOBIN 31.2 pg (28.0-32.0); MEAN CORPUSCULAR VOLUME 90.8 fL (81.0-99.0); MEAN PLATELET VOLUME 7.8 fl (7.4-10.4); MONOCYTES % 11.7 % (2.0-8.0); NEUTROPHILS % 70.1 % (40.0-76.0); PLATELET 315 x1000/uL (130-400); RED BLOOD CELL COUNT 3.22 mill/uL (4.2-5.4); RED CELL DISTRIBUTION WIDTH 14.7 % (11.6-14.6)
[2019-03-22 07:41] LABS: CHLORIDE 99 mEq/L (98-107)
[2019-03-22 07:48] LABS: PHOSPHORUS 2.4 mg/dL (2.5-4.9)
[2019-03-22 07:52] LABS: CREATINE KINASE 18 IU/L (26-192)
[2019-03-22] MEDS: NYSTATIN POWDER 15GM TOP SCH ×3 (09:00→20:42)
[2019-03-22] MEDS: LACTOBACILLUS GG CAPSULE PO SCH ×2 (09:17→18:32)
[2019-03-22] MEDS: ASCORBIC ACID 500 MG TABLET PO SCH (09:17)
[2019-03-22] MEDS: MEGESTROL ACETATE 400 MG/10 ML UDC PO SCH (09:17)
[2019-03-22] MEDS: ZINC SULFATE 220 MG ( 50 ) CAPSULE PO SCH (09:17)
[2019-03-22] MEDS: AMIODARONE HCL 200 MG TABLET PO SCH ×2 (09:17→18:32)
[2019-03-22] MEDS: FAMOTIDINE 20MG TABLET PO SCH (09:20)
[2019-03-22] MEDS: AMLODIPINE 2.5MG TABLET PO SCH ×2 (09:21→20:41)
[2019-03-22] MEDS ORDERED: FUROSEMIDE 20MG/2ML VIAL IVP NR (10:30)
[2019-03-22] MEDS ORDERED: MEGESTROL ACETATE 400 MG/10 ML UDC PO NR (10:45)
[2019-03-22] MEDS ORDERED: MEGESTROL ACETATE 400 MG/10 ML UDC PO SCH (11:00)
[2019-03-22] MEDS ORDERED: POTASSIUM PHOS,M-BASIC-D-BASIC 20 MMOL in DEXT 5% WATER 243.3333 ML IV NR (12:30)
[2019-03-22] MEDS: POTASSIUM CHLORIDE 20MEQ TABLET SR PO SCH (12:49)
[2019-03-23] VITALS (12 sets, daily range): BP systolic 100–144; BP diastolic 42–69
[2019-03-23] MEDS: IPRATROPIUM/ALBUTEROL 0.5-3(2.5)MG/3ML NEB HHN SCH ×6 (00:59→19:48)
[2019-03-23] MEDS: BENZONATATE 100MG CAPSULE PO SCH ×3 (05:41→22:28)
[2019-03-23] MEDS: CYPROHEPTADINE HCL 4 MG TABLET PO SCH ×3 (05:41→22:28)
[2019-03-23 07:05] LABS: BASOPHILS % 0.7 % (0.0-2.0); EOSINOPHILS % 2.5 % (0.0-5.0); HEMATOCRIT. 30.6 % (36.0-48.0); HEMOGLOBIN. 10.5 g/dL (12.0-16.0); LYMPHOCYTES % 14.3 % (20.0-50.0); MEAN CORPUSCULAR VOLUME 90.7 fL (81.0-99.0); MEAN PLATELET VOLUME 8.1 fl (7.4-10.4); MONOCYTES % 11.7 % (2.0-8.0); NEUTROPHILS % 70.8 % (40.0-76.0); PLATELET 297 x1000/uL (130-400); RED BLOOD CELL COUNT 3.37 mill/uL (4.2-5.4); RED CELL DISTRIBUTION WIDTH 14.7 % (11.6-14.6)
[2019-03-23 07:15] LABS: CHLORIDE 98 mEq/L (98-107)
[2019-03-23] MEDS: ZINC SULFATE 220 MG ( 50 ) CAPSULE PO SCH (08:35)
[2019-03-23] MEDS: LACTOBACILLUS GG CAPSULE PO SCH ×2 (08:35→17:54)
[2019-03-23] MEDS: MEGESTROL ACETATE 400 MG/10 ML UDC PO SCH (08:35)
[2019-03-23] MEDS: FAMOTIDINE 20MG TABLET PO SCH (08:36)
[2019-03-23] MEDS: POTASSIUM CHLORIDE 20MEQ TABLET SR PO SCH (08:36)
[2019-03-23] MEDS: AMIODARONE HCL 200 MG TABLET PO SCH ×2 (08:36→17:54)
[2019-03-23] MEDS: AMLODIPINE 2.5MG TABLET PO SCH ×2 (08:36→21:47)
[2019-03-23] MEDS: ASCORBIC ACID 500 MG TABLET PO SCH (08:36)
[2019-03-23] MEDS: NYSTATIN POWDER 15GM TOP SCH ×2 (08:42→21:48)
[2019-03-23] MEDS ORDERED: LACTULOSE 20G/30ML UDC PO NR (17:00)
[2019-03-23] MEDS ORDERED: BISACODYL 10MG SUPP PR NR (17:00)
[2019-03-24] VITALS (13 sets, daily range): BP systolic 94–124; BP diastolic 42–89
[2019-03-24] MEDS: IPRATROPIUM/ALBUTEROL 0.5-3(2.5)MG/3ML NEB HHN SCH ×6 (00:01→20:10)
[2019-03-24] MEDS: CYPROHEPTADINE HCL 4 MG TABLET PO SCH ×3 (05:45→21:56)
[2019-03-24] MEDS: BENZONATATE 100MG CAPSULE PO SCH ×3 (05:45→21:56)
[2019-03-24] MEDS: FAMOTIDINE 20MG TABLET PO SCH (09:21)
[2019-03-24] MEDS: MEGESTROL ACETATE 400 MG/10 ML UDC PO SCH (09:21)
[2019-03-24] MEDS: AMIODARONE HCL 200 MG TABLET PO SCH ×2 (09:24→17:13)
[2019-03-24] MEDS: POTASSIUM CHLORIDE 20MEQ TABLET SR PO SCH (09:24)
[2019-03-24] MEDS: AMLODIPINE 2.5MG TABLET PO SCH ×2 (09:24→21:00)
[2019-03-24] MEDS: ZINC SULFATE 220 MG ( 50 ) CAPSULE PO SCH (09:24)
[2019-03-24] MEDS: LACTOBACILLUS GG CAPSULE PO SCH ×2 (09:24→17:13)
[2019-03-24] MEDS: ASCORBIC ACID 500 MG TABLET PO SCH (09:25)
[2019-03-24] MEDS: NYSTATIN POWDER 15GM TOP SCH ×2 (09:35→21:57)
[2019-03-24] MEDS: LIDOCAINE 5% PATCH TOP SCH (17:17)
[2019-03-25] VITALS: BP 103/44
[2019-03-25] MEDS: IPRATROPIUM/ALBUTEROL 0.5-3(2.5)MG/3ML NEB HHN SCH ×6 (00:27→22:21)
[2019-03-25 04:00] VITALS: BP 114/39
[2019-03-25] MEDS: CYPROHEPTADINE HCL 4 MG TABLET PO SCH ×3 (06:00→22:54)
[2019-03-25] MEDS: BENZONATATE 100MG CAPSULE PO SCH ×3 (06:47→22:54)
[2019-03-25 08:12] VITALS: BP 140/53
[2019-03-25] MEDS: LIDOCAINE 5% PATCH TOP SCH (09:00)
[2019-03-25] MEDS: POTASSIUM CHLORIDE 20MEQ TABLET SR PO SCH (09:27)
[2019-03-25] MEDS: ZINC SULFATE 220 MG ( 50 ) CAPSULE PO SCH (09:27)
[2019-03-25] MEDS: MEGESTROL ACETATE 400 MG/10 ML UDC PO SCH (09:27)
[2019-03-25] MEDS: AMLODIPINE 2.5MG TABLET PO SCH ×2 (09:27→21:00)
[2019-03-25] MEDS: LACTOBACILLUS GG CAPSULE PO SCH ×2 (09:28→17:05)
[2019-03-25] MEDS: FAMOTIDINE 20MG TABLET PO SCH (09:28)
[2019-03-25] MEDS: ASCORBIC ACID 500 MG TABLET PO SCH (09:28)
[2019-03-25] MEDS: NYSTATIN POWDER 15GM TOP SCH ×2 (09:30→22:55)
[2019-03-25] MEDS: AMIODARONE HCL 200 MG TABLET PO SCH ×2 (11:34→21:00)
[2019-03-25 11:41] VITALS: BP 165/141
[2019-03-25 15:40] VITALS: BP 100/48
[2019-03-25] MEDS ORDERED: METHYLPREDNISOLONE 4MG TABLET PO NR (18:30)
[2019-03-25 20:00] VITALS: BP 103/40
[2019-03-26] VITALS: BP 108/42
[2019-03-26] MEDS: IPRATROPIUM/ALBUTEROL 0.5-3(2.5)MG/3ML NEB HHN SCH ×6 (01:45→20:58)
[2019-03-26 04:00] VITALS: BP 122/75
[2019-03-26] MEDS: CYPROHEPTADINE HCL 4 MG TABLET PO SCH ×3 (05:34→21:44)
[2019-03-26] MEDS: BENZONATATE 100MG CAPSULE PO SCH ×3 (05:34→22:00)
[2019-03-26 07:27] LABS: HEMATOCRIT. 27.3 % (36.0-48.0); HEMOGLOBIN. 9.3 g/dL (12.0-16.0); MEAN CORPUSCULAR HEMOGLOBIN 30.6 pg (28.0-32.0); MEAN CORPUSCULAR VOLUME 90.1 fL (81.0-99.0); MEAN PLATELET VOLUME 8.4 fl (7.4-10.4); PLATELET 318 x1000/uL (130-400); RED BLOOD CELL COUNT 3.03 mill/uL (4.2-5.4); RED CELL DISTRIBUTION WIDTH 14.9 % (11.6-14.6)
[2019-03-26 07:43] LABS: PHOSPHORUS 3.3 mg/dL (2.5-4.9)
[2019-03-26] MEDS: MEGESTROL ACETATE 400 MG/10 ML UDC PO SCH (09:08)
[2019-03-26] MEDS: POTASSIUM CHLORIDE 20MEQ TABLET SR PO SCH (09:08)
[2019-03-26] MEDS: FAMOTIDINE 20MG TABLET PO SCH (09:09)
[2019-03-26] MEDS: ASCORBIC ACID 500 MG TABLET PO SCH (09:09)
[2019-03-26] MEDS: AMLODIPINE 2.5MG TABLET PO SCH ×2 (09:09→21:44)
[2019-03-26] MEDS: ZINC SULFATE 220 MG ( 50 ) CAPSULE PO SCH (09:09)
[2019-03-26] MEDS: AMIODARONE HCL 200 MG TABLET PO SCH ×2 (09:10→21:47)
[2019-03-26] MEDS: LACTOBACILLUS GG CAPSULE PO SCH ×2 (09:10→16:27)
[2019-03-26] MEDS: MAGNESIUM OXIDE 400MG TABLET PO SCH (09:11)
[2019-03-26] MEDS: METHYLPREDNISOLONE 4MG TABLET PO SCH (09:12)
[2019-03-26 09:24] VITALS: BP 123/51
[2019-03-26] MEDS: LIDOCAINE 5% PATCH TOP SCH ×2 (09:24→09:25)
[2019-03-26] MEDS: NYSTATIN POWDER 15GM TOP SCH ×2 (09:28→21:59)
[2019-03-26 12:00] VITALS: BP 107/48
[2019-03-26 14:10] LABS: PLATELET ESTIMATE NORMAL
[2019-03-26 16:00] VITALS: BP 115/60
[2019-03-26 20:00] VITALS: BP 115/48
[2019-03-27] VITALS: BP 121/49
[2019-03-27] MEDS: IPRATROPIUM/ALBUTEROL 0.5-3(2.5)MG/3ML NEB HHN SCH ×6 (01:22→21:20)
[2019-03-27 04:00] VITALS: BP 121/55
[2019-03-27] MEDS: CYPROHEPTADINE HCL 4 MG TABLET PO SCH ×3 (05:16→21:09)
[2019-03-27] MEDS: BENZONATATE 100MG CAPSULE PO SCH ×3 (05:16→21:08)
[2019-03-27 08:00] VITALS: BP 127/46
[2019-03-27 09:10] LABS: BASOPHILS % 0.3 % (0.0-2.0); EOSINOPHILS % 0.7 % (0.0-5.0); HEMATOCRIT. 26.3 % (36.0-48.0); HEMOGLOBIN. 8.9 g/dL (12.0-16.0); LYMPHOCYTES % 8.8 % (20.0-50.0); MEAN CORPUSCULAR HEMOGLOBIN 30.6 pg (28.0-32.0); MEAN CORPUSCULAR VOLUME 90.8 fL (81.0-99.0); MEAN PLATELET VOLUME 8.3 fl (7.4-10.4); MONOCYTES % 8.4 % (2.0-8.0); NEUTROPHILS % 81.8 % (40.0-76.0); PLATELET 312 x1000/uL (130-400); RED CELL DISTRIBUTION WIDTH 14.9 % (11.6-14.6)
[2019-03-27 09:11] LABS: CHLORIDE 101 mEq/L (98-107)
[2019-03-27] MEDS: MAGNESIUM OXIDE 400MG TABLET PO SCH (09:41)
[2019-03-27] MEDS: POTASSIUM CHLORIDE 20MEQ TABLET SR PO SCH (09:41)
[2019-03-27] MEDS: ZINC SULFATE 220 MG ( 50 ) CAPSULE PO SCH (09:41)
[2019-03-27] MEDS: FAMOTIDINE 20MG TABLET PO SCH (09:41)
[2019-03-27] MEDS: ASCORBIC ACID 500 MG TABLET PO SCH (09:41)
[2019-03-27] MEDS: AMLODIPINE 2.5MG TABLET PO SCH ×2 (09:42→21:09)
[2019-03-27] MEDS: MEGESTROL ACETATE 400 MG/10 ML UDC PO SCH (09:43)
[2019-03-27] MEDS: NYSTATIN POWDER 15GM TOP SCH ×2 (09:43→21:08)
[2019-03-27] MEDS: METHYLPREDNISOLONE 4MG TABLET PO SCH (10:10)
[2019-03-27] MEDS: AMIODARONE HCL 200 MG TABLET PO SCH ×2 (10:13→21:08)
[2019-03-27 12:00] VITALS: BP 113/50
[2019-03-27] MEDS: LACTOBACILLUS GG CAPSULE PO SCH ×2 (14:20→21:08)
[2019-03-27 16:00] VITALS: BP 107/52
[2019-03-27 20:00] VITALS: BP 140/70
[2019-03-28] VITALS: BP 106/66
[2019-03-28] MEDS: IPRATROPIUM/ALBUTEROL 0.5-3(2.5)MG/3ML NEB HHN SCH ×7 (00:54→23:47)
[2019-03-28 04:00] VITALS: BP 110/65
[2019-03-28] MEDS: CYPROHEPTADINE HCL 4 MG TABLET PO SCH ×3 (05:42→21:10)
[2019-03-28] MEDS: BENZONATATE 100MG CAPSULE PO SCH ×3 (05:42→21:10)
[2019-03-28 08:00] VITALS: BP 108/61
[2019-03-28] MEDS: AMLODIPINE 2.5MG TABLET PO SCH ×2 (09:00→21:10)
[2019-03-28] MEDS: LIDOCAINE 5% PATCH TOP SCH (09:00)
[2019-03-28] MEDS: MAGNESIUM OXIDE 400MG TABLET PO SCH (11:28)
[2019-03-28] MEDS: NYSTATIN POWDER 15GM TOP SCH ×2 (11:28→21:10)
[2019-03-28] MEDS: LACTOBACILLUS GG CAPSULE PO SCH ×2 (11:28→18:58)
[2019-03-28] MEDS: METHYLPREDNISOLONE 4MG TABLET PO SCH (11:29)
[2019-03-28] MEDS: ZINC SULFATE 220 MG ( 50 ) CAPSULE PO SCH (11:29)
[2019-03-28] MEDS: ASCORBIC ACID 500 MG TABLET PO SCH (11:29)
[2019-03-28] MEDS: FAMOTIDINE 20MG TABLET PO SCH (11:29)
[2019-03-28] MEDS: POTASSIUM CHLORIDE 20MEQ TABLET SR PO SCH (11:29)
[2019-03-28] MEDS: AMIODARONE HCL 200 MG TABLET PO SCH ×2 (11:36→21:10)
[2019-03-28] MEDS: MEGESTROL ACETATE 400 MG/10 ML UDC PO SCH (11:48)
[2019-03-28 12:00] VITALS: BP 122/58
[2019-03-28 16:11] VITALS: BP 119/34
[2019-03-28 20:00] VITALS: BP 117/47
[2019-03-29] VITALS: BP 138/47
[2019-03-29] MEDS: IPRATROPIUM/ALBUTEROL 0.5-3(2.5)MG/3ML NEB HHN SCH ×4 (00:17→20:39)
[2019-03-29 04:00] VITALS: BP 123/41
[2019-03-29] MEDS: CYPROHEPTADINE HCL 4 MG TABLET PO SCH ×3 (05:43→21:16)
[2019-03-29] MEDS: BENZONATATE 100MG CAPSULE PO SCH ×3 (05:43→21:15)
[2019-03-29 06:48] LABS: CHLORIDE 105 mEq/L (98-107)
[2019-03-29 07:20] LABS: BASOPHILS % 0.2 % (0.0-2.0); EOSINOPHILS % 0.4 % (0.0-5.0); HEMOGLOBIN. 9.8 g/dL (12.0-16.0); LYMPHOCYTES % 8.1 % (20.0-50.0); MEAN CORPUSCULAR HEMOGLOBIN 30.8 pg (28.0-32.0); MEAN CORPUSCULAR VOLUME 91.4 fL (81.0-99.0); MEAN PLATELET VOLUME 8.1 fl (7.4-10.4); MONOCYTES % 8.8 % (2.0-8.0); NEUTROPHILS % 82.5 % (40.0-76.0); PLATELET 288 x1000/uL (130-400); RED BLOOD CELL COUNT 3.18 mill/uL (4.2-5.4); RED CELL DISTRIBUTION WIDTH 14.8 % (11.6-14.6)
[2019-03-29 08:00] VITALS: BP 130/54
[2019-03-29] MEDS: METHYLPREDNISOLONE 4MG TABLET PO SCH (09:00)
[2019-03-29] MEDS: LIDOCAINE 5% PATCH TOP SCH (09:00)
[2019-03-29] MEDS: LACTOBACILLUS GG CAPSULE PO SCH ×2 (10:44→17:18)
[2019-03-29] MEDS: ZINC SULFATE 220 MG ( 50 ) CAPSULE PO SCH (10:44)
[2019-03-29] MEDS: FAMOTIDINE 20MG TABLET PO SCH (10:45)
[2019-03-29] MEDS: AMIODARONE HCL 200 MG TABLET PO SCH ×2 (10:45→21:12)
[2019-03-29] MEDS: POTASSIUM CHLORIDE 20MEQ TABLET SR PO SCH (10:45)
[2019-03-29] MEDS: ASCORBIC ACID 500 MG TABLET PO SCH (10:45)
[2019-03-29] MEDS: MAGNESIUM OXIDE 400MG TABLET PO SCH (10:45)
[2019-03-29] MEDS: AMLODIPINE 2.5MG TABLET PO SCH ×2 (10:46→21:00)
[2019-03-29] MEDS: NYSTATIN POWDER 15GM TOP SCH ×2 (10:46→21:00)
[2019-03-29] MEDS: MEGESTROL ACETATE 400 MG/10 ML UDC PO SCH (10:51)
[2019-03-29 12:00] VITALS: BP 141/42
[2019-03-29] MEDS ORDERED: BISACODYL 10MG SUPP PR NR (15:45)
[2019-03-29] MEDS ORDERED: SORBITOL 70% SOLN 30ML PO NR (15:45)
[2019-03-29 16:00] VITALS: BP 136/52
[2019-03-29 20:00] VITALS: BP 102/51
[2019-03-30] VITALS (7 sets, daily range): BP systolic 110–134; BP diastolic 54–98
[2019-03-30] MEDS: IPRATROPIUM/ALBUTEROL 0.5-3(2.5)MG/3ML NEB HHN SCH ×5 (00:10→17:20)
[2019-03-30] MEDS: BENZONATATE 100MG CAPSULE PO SCH ×2 (06:40→13:31)
[2019-03-30] MEDS: CYPROHEPTADINE HCL 4 MG TABLET PO SCH ×2 (06:40→13:31)
[2019-03-30] MEDS: AMLODIPINE 2.5MG TABLET PO SCH (09:00)
[2019-03-30] MEDS: ASCORBIC ACID 500 MG TABLET PO SCH (09:15)
[2019-03-30] MEDS: ZINC SULFATE 220 MG ( 50 ) CAPSULE PO SCH (09:15)
[2019-03-30] MEDS: FAMOTIDINE 20MG TABLET PO SCH (09:16)
[2019-03-30] MEDS: LACTOBACILLUS GG CAPSULE PO SCH ×2 (09:16→16:57)
[2019-03-30] MEDS: POTASSIUM CHLORIDE 20MEQ TABLET SR PO SCH (09:16)
[2019-03-30] MEDS: MAGNESIUM OXIDE 400MG TABLET PO SCH (09:16)
[2019-03-30] MEDS: AMIODARONE HCL 200 MG TABLET PO SCH (09:16)
[2019-03-30] MEDS: LIDOCAINE 5% PATCH TOP SCH (09:22)
[2019-03-30] MEDS: MEGESTROL ACETATE 400 MG/10 ML UDC PO SCH (09:25)
== END 2019-03-30 20:00 | DRG 270 ==
LOC: 5EST 13:40 → CVICU 03-09 08:39 → 3WST 03-14 11:53 → 7WST 03-24 22:54
PROVIDERS: ADMIT Internal Medicine; ATTEND Internal Medicine
PROC: 02BN0ZX Excision of Pericardium, Open Approach, Diagnostic (ICD-10-PCS; principal; 2019-03-09)
PROC: 0W9D00Z Drainage of Pericardial Cavity with Drainage Device, Open Approach (ICD-10-PCS; 2019-03-09)
PROC: 0B9L8ZX Drainage of Left Lung, Via Natural or Artificial Opening Endoscopic, Diagnostic (ICD-10-PCS; 2019-03-09)
PROC: B24BZZ4 Ultrasonography of Heart with Aorta, Transesophageal (ICD-10-PCS; 2019-03-09)
PROC: 0W9B3ZZ Drainage of Left Pleural Cavity, Percutaneous Approach (ICD-10-PCS; 2019-03-10)
DX: I31.3 Pericardial effusion (noninflammatory) (principal); I26.99 Other pulmonary embolism without acute cor pulmonale; J18.9 Pneumonia, unspecified organism; J96.90 Respiratory failure, unspecified, unspecified whether with hypoxia or hypercapnia; E43 Unspecified severe protein-calorie malnutrition; J44.1 Chronic obstructive pulmonary disease with (acute) exacerbation; E87.2 Acidosis; I82.532 Chronic embolism and thrombosis of left popliteal vein; N17.9 Acute kidney failure, unspecified; J44.0 Chronic obstructive pulmonary disease with (acute) lower respiratory infection; G62.81 Critical illness polyneuropathy; I48.92 Unspecified atrial flutter; I47.1 Supraventricular tachycardia; Z68.1 Body mass index [BMI] 19.9 or less, adult; R47.01 Aphasia; I48.0 Paroxysmal atrial fibrillation; R13.10 Dysphagia, unspecified; N18.9 Chronic kidney disease, unspecified; Y95 Nosocomial condition; R62.7 Adult failure to thrive; M81.0 Age-related osteoporosis without current pathological fracture; I27.29 Other secondary pulmonary hypertension; L60.3 Nail dystrophy; F32.9 Major depressive disorder, single episode, unspecified; Z96.642 Presence of left artificial hip joint; E78.5 Hyperlipidemia, unspecified; I25.10 Atherosclerotic heart disease of native coronary artery without angina pectoris; Z96.651 Presence of right artificial knee joint; R26.9 Unspecified abnormalities of gait and mobility; D50.9 Iron deficiency anemia, unspecified; I12.9 Hypertensive chronic kidney disease with stage 1 through stage 4 chronic kidney disease, or unspecified chronic kidney disease; Z99.81 Dependence on supplemental oxygen; Z79.01 Long term (current) use of anticoagulants; Z79.899 Other long term (current) drug therapy; Z88.1 Allergy status to other antibiotic agents; Z79.82 Long term (current) use of aspirin; Z86.718 Personal history of other venous thrombosis and embolism; Z86.711 Personal history of pulmonary embolism; Z83.3 Family history of diabetes mellitus; Z82.49 Family history of ischemic heart disease and other diseases of the circulatory system; Z75.1 Person awaiting admission to adequate facility elsewhere
CPT/HCPCS: 32555; 36415; 36600; 71045; 71250; 76604; 78582; 80048; 80202; 82040; 82375; 82550; 82607; 82728; 82746; 82805; 82962; 83540; 83550; 83615; 83735; 83880; 84100; 84132; 84443; 85651; 86850; 86900; 86920; 87070; 87075; 87077; 87102; 87116; 88108; 88305; 88312; 92610; 93005; 93306; 93970; 94640; 94660; 97110; 97163; 97164; 97167; 97530; 97535; A9558; J0171; J0690; J1160; J1200; J1265; J1650; J1940; J2250; J2405; J2543; J2704; J2710; J3010; J3370; J3475; J3480; J3490; J7042; J7060; J7131; J7509; J7611; J7620; P9016; P9021